=== PATIENT | male | born 1960 | race Caucasian/White ===

== ENCOUNTER 2017-10-19 14:37 | Inpatient (IN) | payer OTHER ==
[2017-10-19 16:49] VITALS: BMI 27.4
--- NOTE | 2017-10-19 20:14 | HP ---
CIWA Score - CIWA Score Nausea/Vomitin-Mild Nausea/No Vomiting Muscle Tremors: 2 Anxiety: 4-Mod. Anxious/Guarded Agitation: 1-Slight > Activity Paroxysmal Sweats: 3 Orientation: 0-Oriented Tacttile Disturbances: 3-Moderate Itch/Numb/Burn Auditory Disturbances: 2-Mild Harshness/Frighten Visual Disturbances: 3-Moderate Sensitivity Headache: 2-Mild CIWA-Ar Total Score: 21 Admission ROS S - HPI Chief Complaint: withdrawal symptoms Allergies/Adverse Reactions: Allergies Allergy/AdvReac Type Severity Reaction Status Date / Time No Known Allergies Allergy Verified 10/19/17 18:36 History of Present Illness: 57 yo male with hx of IV heroin, nicotine, and alcohol dependence is here for detox. Reports smoking since age 18 yo and currently smokes 11 cigarettes per day. Patient currently attends [facility] treatment and recovery Tel: , currently on Methadone 110 mg, last medicated 10/19/17. Past medical history of GERD, depression, anxiety, bipolar and schizophrenia, Hep C and anemia. Reports history of suicide attempt in 2006 by hanging. Currently denies suicidal / homicidal ideation. Reports the longest period of sobriety 2 years. Last detox in [facility] in [place], in 2011. Exam Limitations: No Limitations - Ebola screening Have you traveled outside of the country in the last 21 days: No Have you had contact with anyone from an Ebola affected area: No Have you been sick,other than usual withdrawal symptoms: No Do you have a fever: No - Review of Systems Constitutional: Chills, Loss of Appetite, Changes in sleep EENT: reports: Blurred Vision (uses reading glasses), Nose Congestion, Dental Problems, Other (b/t ears feel clogged) Respiratory: reports: SOB with Exertion (when using steps or after ambulating 1/ 2 blocks) Cardiac: reports: Lightheadedness, Syncope (last time one month from drinking alcohol) GI: reports: Nausea, Indigestion : reports: Burning, Urgency Musculoskeletal: reports: Joint Pain (knees and elbows) Integumentary: reports: No Symptoms Reported Neuro: reports: Headache, Numbness (b/t lower extremities), Tingling, Dizziness Endocrine: reports: Increased Thirst Hematology: reports: Anemia Psychiatric: reports: Orientated x3, Anxious, other Other Systems: Reviewed and Negative Patient History - Patient Medical History Hx Anemia: Yes Hx Asthma: Yes (currenty not taking any medicaitons ) Hx Chronic Obstructive Pulmonary Disease (COPD): No Hx Cancer: No Hx Cardiac Disorders: No Hx Congestive Heart Failure: No Hx Hypertension: No Hx Hypercholesterolemia: No Hx Pacemaker: No HX Cerebrovascular Accident: No Hx Seizures: No Hx Dementia: No Hx Diabetes: No Hx Gastrointestinal Disorders: No Hx Liver Disease: Yes (Hep C ) Hx Genitourinary Disorders: No Hx Sexually Transmitted Disorders: No Hx Renal Disease (ESRD): No Hx Thyroid Disease: No Hx Human Immunodeficiency Virus (HIV): No (last tested 1 year ago ) Hx Hepatitis C: Yes Hx Depression: Yes Hx Suicide Attempt: Yes (2006) Hx Bipolar Disorder: Yes Hx Schizophrenia: Yes - Patient Surgical History Past Surgical History: No Hx Neurologic Surgery: No Hx Cataract Extraction: No Hx Cardiac Surgery: No Hx Lung Surgery: No Hx Breast Surgery: No Hx Breast Biopsy: No Hx Abdominal Surgery: Yes (splenectomy ) Hx Appendectomy: No Hx Cholecystectomy: No Hx Genitourinary Surgery: No Hx Section: No Hx Orthopedic Surgery: No Anesthesia Reaction: No - PPD History Previous Implant?: Yes Documented Results: Positive w/o proof PPD to be Administered?: No - Reproductive History Patient is a Female of Child Bearing Age (11 -55 yrs old): No - Smoking Cessation Smoking history: Current every day smoker Have you smoked in the past 12 months: Yes Aproximately how many cigarettes per day: 11 Hx Chewing Tobacco Use: No Initiated information on smoking cessation: Yes 'Breaking Loose' booklet given: 10/19/17 - Substance & Tx. History Hx Alcohol Use: Yes Hx Substance Use: Yes Substance Use Type: Alcohol Hx Substance Use Treatment: Yes (2011) - Substances Abused Alcohol Route: Oral Frequency: Daily Amount used: beer- 1 six pack (24oz) Age of first use: 17 Date of Last Use: 10/19/17 Family Disease History - Family Disease History Family Disease History: Diabetes: Mother (alive, HTN), Heart Disease: Father ( dec, MA and Asthma ), Mother, Other: Father, Mother Admission Physical Exam BHS - Vital Signs Vital Signs: Vital Signs - 24 hr 10/19/17 16:48 Temperature 97.8 F Pulse Rate 64 Respiratory 18 Rate Blood Pressure 145/83 - Physical General Appearance: Yes: Disheveled, Alcohol on Breath, Sweating, Anxious, Other (malodorous) HEENTM: Yes: EOMI, Hearing grossly Normal, Normal ENT Inspection, Normocephalic , Normal Voice, FELICIANO, Pharynx Normal, Tm's normal, Other (poor dentation, dry mucous membranes) Respiratory: Yes: Chest Non-Tender, Lungs Clear, Normal Breath Sounds, No Respiratory Distress, No Accessory Muscle Use Neck: Yes: No masses,lesions,Nodules, Trachea in good position Breast: Yes: Breast Exam Deferred Cardiology: Yes: Regular Rhythm, Regular Rate, S1, S2 Abdominal: Yes: Normal Bowel Sounds, Non Tender, Soft, Protuberent, Other ( umbilical hernia) Genitourinary: Yes: Within Normal Limits Back: Yes: Within Normal Limits, Normal Inspection Musculoskeletal: Yes: full range of Motion, Gait Steady, Pelvis Stable Extremities: Yes: Normal Capillary Refill, Normal Inspection, Normal Range of Motion, Non-Tender Neurological: Yes: cover marker II-XII NML intact, Fully Oriented, Alert, Motor Strength 5/5, Depressed Affect Integumentary: Yes: Normal Color, Dry, Warm Lymphatic: Yes: Within Normal Limits - Diagnostic (1) Alcohol dependence with withdrawal Current Visit: Yes Status: Acute Qualifiers: Complication of substance-induced condition: uncomplicated Qualified Code(s ): F10.230 - Alcohol dependence with withdrawal, uncomplicated (2) Methadone maintenance therapy patient Current Visit: Yes Status: Chronic (3) GERD (gastroesophageal reflux disease) Current Visit: Yes Status: Chronic (4) Umbilical hernia Current Visit: No Status: Chronic (5) Allergic rhinitis Current Visit: Yes Status: Acute (6) Nicotine dependence Current Visit: Yes Status: Chronic (7) Hepatitis-C Current Visit: Yes Status: Chronic (8) Asthma Current Visit: Yes Status: Chronic Qualifiers: Asthma severity: mild (9) History of psychiatric disorder Current Visit: Yes Status: Chronic (10) Difficulty sleeping Current Visit: Yes Status: Acute Cleared for Admission S - Detox or Rehab [facility] Level of Care: Medically Managed Detox Regimen/Protocol: Librium [facility] Breath Alcohol Content Breath Alcohol Content: 0.040 Urine Drug Screen - Results Drug Screen Negative: No Urine Drug Screen Results: MTD-Methadone, TCA-Tricyclic Antidepress
[2017-10-19] MEDS ORDERED: chlordiazePOXIDE HCL 25 MG CAPSULE PO ONE (20:38)
[2017-10-19] MEDS ORDERED: MENTHOL/PHENOL 1 EACH UD MM PRN (20:38)
[2017-10-19] MEDS ORDERED: LOPERAMIDE HCL 2 MG CAPSULE PO PRN (20:38)
[2017-10-19] MEDS ORDERED: NICOTINE POLACRILEX 2 MG GUM BC PRN (20:38)
[2017-10-19] MEDS ORDERED: IBUPROFEN 400 MG TABLET (FP) PO PRN (20:38)
[2017-10-19] MEDS ORDERED: MAGNESIUM HYDROX 2400MG/30ML ORAL SUSPENSION 30 ML CUP PO PRN (20:38)
[2017-10-19] MEDS ORDERED: MAGNESIUM CITRATE 300 ML BOTTLE PO PRN (20:38)
[2017-10-19] MEDS ORDERED: guaiFENesin/D-METHORPHAN HB 10 ML UNIT-DOSE CUPS PO PRN (20:38)
[2017-10-19] MEDS ORDERED: chlordiazePOXIDE HCL 25 MG CAPSULE PO PRN (20:38)
[2017-10-19] MEDS ORDERED: diphenhydrAMINE HCL 25 MG CAPSULE (FP) PO PRN ×2 (20:40→20:48)
[2017-10-19] MEDS: PANTOPRAZOLE 20 MG TABLET (FP) PO SCH (21:26)
[2017-10-19] MEDS: THIAMINE HCL 100 MG TABLET (FP) PO SCH (22:27)
[2017-10-19] MEDS: chlordiazePOXIDE HCL 25 MG CAPSULE PO SCH (22:28)
[2017-10-19] MEDS: MAG HYDROX/AL HYDROX/SIMETH 30 ML UNIT-DOSE CUP PO PRN (22:42)
[2017-10-20] MEDS: P-EPHED 60MG/TRIPROLIDI 2.5MG TABLET PO PRN ×2 (05:45→17:18)
[2017-10-20] MEDS: chlordiazePOXIDE HCL 25 MG CAPSULE PO SCH ×4 (05:45→22:21)
[2017-10-20] MEDS: MAG HYDROX/AL HYDROX/SIMETH 30 ML UNIT-DOSE CUP PO PRN ×2 (05:45→17:18)
[2017-10-20] MEDS ORDERED: METHADONE HCL 10 MG TABLET PO ONE (08:48)
[2017-10-20] MEDS ORDERED: METHADONE 80 MG, METHADONE 30 MG PO ONE (09:15)
[2017-10-20] MEDS ORDERED: METHADONE HCL 10 MG TABLET ONE (09:24)
[2017-10-20] MEDS ORDERED: METHADONE HCL 40 MG DISPERSABLE TABLET ONE (09:25)
[2017-10-20] MEDS: PRENATAL VITAMINS W/ FOLIC ACID TABLET (FP) PO SCH (09:30)
[2017-10-20] MEDS: PANTOPRAZOLE 20 MG TABLET (FP) PO SCH (09:30)
--- NOTE | 2017-10-20 09:43 | CONSULT ---
[facility] Psychiatric Consult - Data Date of interview: 10/20/17 Admission source: [facility] Identifying data: Pt. is a 57 year old single male, father of one, unemployed and homeless. This is patient's first admission to [facility]. Pt. admitted to for alcohol dependence. Substance Abuse History: Following information confirmed with Mr. Holder: Smoking Cessation. Smoking history: Current every day smoker. Have you smoked in the past 12 months: Yes. Aproximately how many cigarettes per day: 11. Hx Chewing Tobacco Use: No. Initiated information on smoking cessation: Yes. ' Breaking Loose' booklet given: 10/19/17. - Substance & Tx. History. Hx Alcohol Use: Yes. Hx Substance Use: Yes. Substance Use Type: Alcohol. Hx Substance Use Treatment: Yes (2011). - Substances Abused. Alcohol. Route: Oral. Frequency: Daily. Amount used: beer- 1 six pack (24oz). Age of first use: 17. Date of Last Use: 10/19/17 Medical History: Anemia, Asthma, Hep C Psychiatric History: Pt. reports one psychiatric hospitalization in 2006 at [facility] [place] for suicide attempt via hanging self. Pt. reports taking psychiatric medications during different periods of incarceration ranging from [id number]. Pt. reports living in a homeless nursing home facility called "[facility]" and a psychiatrist visits the nursing home and see's him there. Pt. is unable to recall the medication he is taking, and also reports medication nonadherence. Pt. is a poor historian (unable to recall h/o psychiatric medications and dosages). Pt. reports a diagnosis of depresssion and anxiety. Pt. denies suicidal and homicidal ideation. Physical/Sexual Abuse/Trauma History: Denies. Mental Status Exam - Mental Status Exam Alert and Oriented to: Time, Place, Person Cognitive Function: Good Patient Appearance: Unkempt Mood: Withdrawn, Euthymic Affect: Mood Congruent Patient Behavior: Guarded, Cooperative Speech Pattern: Delayed Voice Loudness: Moderately Soft/Quiet Thought Process: Goal Oriented Thought Disorder: Not Present Hallucinations: Denies Suicidal Ideation: Denies Homicidal Ideation: Denies Insight/Judgement: Poor Sleep: Poorly Appetite: Fair Muscle strength/Tone: Normal Gait/Station: Other (Did not observe patient gait.) Psychiatric Findings - Problem List ([place] 1, 2,3) (1) Alcohol dependence with withdrawal Current Visit: Yes Status: Acute Qualifiers: Complication of substance-induced condition: uncomplicated Qualified Code(s ): F10.230 - Alcohol dependence with withdrawal, uncomplicated (2) Methadone maintenance therapy patient Current Visit: Yes Status: Chronic (3) Nicotine dependence Current Visit: Yes Status: Acute Qualifiers: Nicotine product type: cigarettes Substance use status: in withdrawal Qualified Code(s): F17.213 - Nicotine dependence, cigarettes, with withdrawal (4) Substance induced mood disorder Current Visit: No Status: Suspected - Initial Treatment Plan Initial Treatment Plan: Psychoeducation provided. Detoxification provided. Observation.
[2017-10-20] MEDS: NICOTINE 14 MG/24 HOURS TOPICAL PATCH TD SCH (10:20)
[2017-10-20 10:21] LABS: HEMATOCRIT 43.1 % (35.4-49); MCH 33.5 pg (25.7-33.7); MCHC 32.5 g/dl (32.0-35.9); MEAN CELL VOLUME 103.1 fl (80-96); MEAN PLT VOLUME 10.5 fl (7.5-11.1); PLATELET COUNT 122 K/MM3 (134-434); RBC 4.18 M/mm3 (4.00-5.60); RDW 13.7 % (11.9-15.9); WHITE BLOOD COUNT 6.1 K/mm3 (4.0-10.0)
[2017-10-20 10:22] LABS: ALBUMIN 3.4 g/dl (3.4-5.0); BLOOD UREA NITROGEN 13 mg/dL (7-18); CHLORIDE 102 mmol/L (98-107); GLUCOSE,RANDOM 113 mg/dL (74-106); POTASSIUM 3.8 mmol/L (3.5-5.1); SODIUM 138 mmol/L (136-145)
[2017-10-20 10:26] LABS: ALK PHOS 198 U/L (45-117); ANION GAP 6 (8-16); CALCIUM 7.9 mg/dL (8.5-10.1); CO2 30 mmol/L (21-32); CREATININE 0.6 mg/dL (0.7-1.3); SGOT/AST 163 U/L (15-37); SGPT/ALT 89 U/L (12-78); TOT PROT 7.7 g/dl (6.4-8.2)
--- NOTE | 2017-10-20 10:44 | PN ---
[facility] CIWA - CIWA Score Nausea/Vomitin-No Nausea/No Vomiting Muscle Tremors: 4-Moderate,w/Arms Extend Anxiety: 4-Mod. Anxious/Guarded Agitation: 4-Moderately Restless Paroxysmal Sweats: 1-Minimal Palms Moist Orientation: 0-Oriented Tacttile Disturbances: 3-Moderate Itch/Numb/Burn Auditory Disturbances: 0-None Visual Disturbances: 0-None Headache: 0-None Present CIWA-Ar Total Score: 16 BHS Progress Note (SOAP) Subjective: ANXIETY,SWEATS,TREMORS,FATIGUE. Objective: 10/20/17 10:42 Vital Signs Temperature 97.2 F L 10/20/17 09:29 Pulse Rate 55 L 10/20/17 09:29 Respiratory Rate 18 10/20/17 09:29 Blood Pressure 141/73 10/20/17 09:29 O2 Sat by Pulse Oximetry (%) Laboratory Last Values WBC 6.1 K/mm3 (4.0-10.0) 10/20/17 07:00 RBC 4.18 M/mm3 (4.00-5.60) 10/20/17 07:00 Hgb 14.0 GM/dL (11.7-16.9) 10/20/17 07:00 Hct 43.1 % (35.4-49) 10/20/17 07:00 MCV 103.1 fl (80-96) H 10/20/17 07:00 MCH 33.5 pg (25.7-33.7) 10/20/17 07:00 MCHC 32.5 g/dl (32.0-35.9) 10/20/17 07:00 RDW 13.7 % (11.9-15.9) 10/20/17 07:00 Plt Count 122 K/MM3 (134-434) L 10/20/17 07:00 MPV 10.5 fl (7.5-11.1) 10/20/17 07:00 Sodium 138 mmol/L (136-145) 10/20/17 07:00 Potassium 3.8 mmol/L (3.5-5.1) 10/20/17 07:00 Chloride 102 mmol/L (98-107) 10/20/17 07:00 Carbon Dioxide 30 mmol/L (21-32) 10/20/17 07:00 Anion Gap 6 (8-16) L 10/20/17 07:00 BUN 13 mg/dL (7-18) 10/20/17 07:00 Creatinine 0.6 mg/dL (0.7-1.3) L 10/20/17 07:00 Creat Clearance w eGFR > 60 (>60) 10/20/17 07:00 Random Glucose 113 mg/dL (74-106) H 10/20/17 07:00 Calcium 7.9 mg/dL (8.5-10.1) L 10/20/17 07:00 Total Bilirubin 1.0 mg/dL (0.2-1.0) 10/20/17 07:00 AST 163 U/L (15-37) H 10/20/17 07:00 ALT 89 U/L (12-78) H 10/20/17 07:00 Alkaline Phosphatase 198 U/L (45-117) H 10/20/17 07:00 Total Protein 7.7 g/dl (6.4-8.2) 10/20/17 07:00 Albumin 3.4 g/dl (3.4-5.0) 10/20/17 07:00 UA SPECIMEN NEEDED Assessment: 10/20/17 10:43 WITHDRAWAL SX Plan: CONTINUE DETOX
--- NOTE | 2017-10-20 11:55 | EKG ---
Test Reason : Blood Pressure : / mmHG Vent. Rate : 063 BPM Atrial Rate : 063 BPM P-R Int : 134 ms QRS Dur : 086 ms QT Int : 460 ms P-R-T Axes : 064 045 061 degrees QTc Int : 470 ms NORMAL SINUS RHYTHM WITH SINUS ARRHYTHMIA NORMAL ECG NO PREVIOUS ECGS AVAILABLE Confirmed by [place] MAS, SEB ([id number]) on 10/20/2017 11:54:51 AM Referred By: Confirmed By:SEB PARIS MD
[2017-10-20] MEDS: THIAMINE HCL 100 MG TABLET (FP) PO SCH (22:21)
[2017-10-21] MEDS: MAG HYDROX/AL HYDROX/SIMETH 30 ML UNIT-DOSE CUP PO PRN (01:27)
[2017-10-21] MEDS: P-EPHED 60MG/TRIPROLIDI 2.5MG TABLET PO PRN ×3 (01:28→23:55)
[2017-10-21] MEDS ORDERED: METHADONE HCL 10 MG TABLET ONE (04:42)
[2017-10-21] MEDS ORDERED: METHADONE HCL 40 MG DISPERSABLE TABLET ONE (04:43)
[2017-10-21] MEDS: chlordiazePOXIDE HCL 25 MG CAPSULE PO SCH ×3 (05:48→17:35)
[2017-10-21] MEDS: METHADONE 80 MG, METHADONE 30 MG PO SCH (05:49)
[2017-10-21] MEDS ORDERED: METHADONE HCL 10 MG TABLET PO SCH (06:00)
[2017-10-21] MEDS: PRENATAL VITAMINS W/ FOLIC ACID TABLET (FP) PO SCH (10:01)
[2017-10-21] MEDS: PANTOPRAZOLE 20 MG TABLET (FP) PO SCH (10:02)
[2017-10-21] MEDS: NICOTINE 14 MG/24 HOURS TOPICAL PATCH TD SCH (10:03)
--- NOTE | 2017-10-21 11:39 | PN ---
[facility] CIWA - CIWA Score Nausea/Vomitin-No Nausea/No Vomiting Muscle Tremors: 4-Moderate,w/Arms Extend Anxiety: 4-Mod. Anxious/Guarded Agitation: 4-Moderately Restless Paroxysmal Sweats: 1-Minimal Palms Moist Orientation: 0-Oriented Tacttile Disturbances: 3-Moderate Itch/Numb/Burn Auditory Disturbances: 0-None Visual Disturbances: 0-None Headache: 0-None Present CIWA-Ar Total Score: 16 BHS Progress Note (SOAP) Subjective: ANXIETY,SWEATS,TREMORS. PT C/O BURNING ON URINATION X 3 WEEKS. INTERMITTENT SLEEP. Objective: 10/21/17 11:36 Laboratory Last Values WBC 6.1 K/mm3 (4.0-10.0) 10/20/17 07:00 RBC 4.18 M/mm3 (4.00-5.60) 10/20/17 07:00 Hgb 14.0 GM/dL (11.7-16.9) 10/20/17 07:00 Hct 43.1 % (35.4-49) 10/20/17 07:00 MCV 103.1 fl (80-96) H 10/20/17 07:00 MCH 33.5 pg (25.7-33.7) 10/20/17 07:00 MCHC 32.5 g/dl (32.0-35.9) 10/20/17 07:00 RDW 13.7 % (11.9-15.9) 10/20/17 07:00 Plt Count 122 K/MM3 (134-434) L 10/20/17 07:00 MPV 10.5 fl (7.5-11.1) 10/20/17 07:00 Sodium 138 mmol/L (136-145) 10/20/17 07:00 Potassium 3.8 mmol/L (3.5-5.1) 10/20/17 07:00 Chloride 102 mmol/L (98-107) 10/20/17 07:00 Carbon Dioxide 30 mmol/L (21-32) 10/20/17 07:00 Anion Gap 6 (8-16) L 10/20/17 07:00 BUN 13 mg/dL (7-18) 10/20/17 07:00 Creatinine 0.6 mg/dL (0.7-1.3) L 10/20/17 07:00 Creat Clearance w eGFR > 60 (>60) 10/20/17 07:00 Random Glucose 113 mg/dL (74-106) H 10/20/17 07:00 Calcium 7.9 mg/dL (8.5-10.1) L 10/20/17 07:00 Total Bilirubin 1.0 mg/dL (0.2-1.0) 10/20/17 07:00 AST 163 U/L (15-37) H 10/20/17 07:00 ALT 89 U/L (12-78) H 10/20/17 07:00 Alkaline Phosphatase 198 U/L (45-117) H 10/20/17 07:00 Total Protein 7.7 g/dl (6.4-8.2) 10/20/17 07:00 Albumin 3.4 g/dl (3.4-5.0) 10/20/17 07:00 RPR Titer Nonreactive (NONREACTIVE) 10/20/17 07:00 Assessment: 10/21/17 11:37 WITHDRAWAL SX Plan: CONTINUE DETOX UA UC BACTRIM DS 1 TAB BID X 10 DAYS
--- NOTE | 2017-10-21 11:48 | PN ---
S Progress Note Note: C/O PAINFUL,BURNING INCOMPLETE AND FREQUENT URINATION X 3 WEEKS. REPORTS DID NOT SEEK MEDICAL ATTENTION. UA SENT OUT BACTRIM DS 1 TAB PO BID STARTED. INCREASE PO FLUIDS DX:UTI
[2017-10-21] MEDS ORDERED: SULFAMETHOXAZOLE/TRIMETHOPRIM 800MG/160MG D.S. TABLET PO ONE (12:00)
[2017-10-21 14:20] LABS: URINE APPEARANCE CLEAR; URINE BILIRUBIN NEGATIVE (NEGATIVE); URINE BLOOD NEGATIVE (NEGATIVE); URINE COLOR YELLOW; URINE GLUCOSE (UA) NEGATIVE (NEGATIVE); URINE KETONE NEGATIVE (NEGATIVE); URINE LEUK ESTERASE NEGATIVE (NEGATIVE); URINE NITRITE NEGATIVE (NEGATIVE); URINE PROTEIN NEGATIVE (NEGATIVE)
[2017-10-21] MEDS: FLUTICASONE PROP 0.05% 16 GM NASAL SPRAY NS PRN (22:10)
[2017-10-21] MEDS: SULFAMETHOXAZOLE/TRIMETHOPRIM 800MG/160MG D.S. TABLET PO SCH (22:12)
[2017-10-21] MEDS: THIAMINE HCL 100 MG TABLET (FP) PO SCH (22:12)
[2017-10-21] MEDS: chlordiazePOXIDE 5 MG CAPSULE PO SCH (22:12)
[2017-10-22] MEDS: chlordiazePOXIDE 5 MG CAPSULE PO SCH ×3 (05:20→17:22)
[2017-10-22] MEDS: METHADONE 80 MG, METHADONE 30 MG PO SCH (05:22)
[2017-10-22] MEDS ORDERED: METHADONE HCL 40 MG DISPERSABLE TABLET ONE (05:22)
[2017-10-22] MEDS ORDERED: METHADONE HCL 10 MG TABLET ONE (05:22)
[2017-10-22] MEDS: SULFAMETHOXAZOLE/TRIMETHOPRIM 800MG/160MG D.S. TABLET PO SCH ×2 (10:28→22:08)
[2017-10-22] MEDS: NICOTINE 14 MG/24 HOURS TOPICAL PATCH TD SCH (10:28)
[2017-10-22] MEDS: PRENATAL VITAMINS W/ FOLIC ACID TABLET (FP) PO SCH (10:28)
[2017-10-22] MEDS: PANTOPRAZOLE 20 MG TABLET (FP) PO SCH (10:28)
[2017-10-22] MEDS: FLUTICASONE PROP 0.05% 16 GM NASAL SPRAY NS PRN ×2 (10:30→23:47)
--- NOTE | 2017-10-22 15:21 | PN ---
BHS Progress Note (SOAP) Subjective: Interrupted sleep, Anxious, Constipation. Objective: PT. A & O X 3, OBSERVED AMBULATING ON UNIT. NO ACUTE DISTRESS. 10/22/17 15:19 Vital Signs Temperature 97.6 F 10/22/17 14:12 Pulse Rate 68 10/22/17 14:12 Respiratory Rate 18 10/22/17 14:12 Blood Pressure 123/73 10/22/17 14:12 O2 Sat by Pulse Oximetry (%) Laboratory Tests 10/20/17 10/20/17 10/20/17 07:00 07:00 07:00 WBC 6.1 RBC 4.18 Hgb 14.0 Hct 43.1 MCV 103.1 H MCH 33.5 MCHC 32.5 RDW 13.7 Plt Count 122 L MPV 10.5 Sodium 138 Potassium 3.8 Chloride 102 Carbon Dioxide 30 Anion Gap 6 L BUN 13 Creatinine 0.6 L Creat Clearance w eGFR > 60 Random Glucose 113 H Calcium 7.9 L Total Bilirubin 1.0 AST 163 H ALT 89 H Alkaline Phosphatase 198 H Total Protein 7.7 Albumin 3.4 Urine Color Urine Appearance Urine pH Ur Specific [place] Urine Protein Urine Glucose (UA) Urine Ketones Urine Blood Urine Nitrite Urine Bilirubin Urine Urobilinogen Ur Leukocyte Esterase RPR Titer Nonreactive 10/21/17 09:20 WBC RBC Hgb Hct MCV MCH MCHC RDW Plt Count MPV Sodium Potassium Chloride Carbon Dioxide Anion Gap BUN Creatinine Creat Clearance w eGFR Random Glucose Calcium Total Bilirubin AST ALT Alkaline Phosphatase Total Protein Albumin Urine Color Yellow Urine Appearance Clear Urine pH 7.0 Ur Specific [place] 1.016 Urine Protein Negative Urine Glucose (UA) Negative Urine Ketones Negative Urine Blood Negative Urine Nitrite Negative Urine Bilirubin Negative Urine Urobilinogen 2.0 Ur Leukocyte Esterase Negative RPR Titer LABS NOTED. Assessment: 10/22/17 15:20 WITHDRAWAL SYMPTOMS. Plan: CONTINUE DETOX.
[2017-10-22] MEDS: THIAMINE HCL 100 MG TABLET (FP) PO SCH (22:08)
[2017-10-22] MEDS: chlordiazePOXIDE HCL 10 MG CAPSULE PO SCH (22:08)
[2017-10-22] MEDS: MAG HYDROX/AL HYDROX/SIMETH 30 ML UNIT-DOSE CUP PO PRN (22:09)
[2017-10-23] MEDS ORDERED: METHADONE HCL 10 MG TABLET ONE (04:28)
[2017-10-23] MEDS ORDERED: METHADONE HCL 40 MG DISPERSABLE TABLET ONE (04:29)
[2017-10-23] MEDS: chlordiazePOXIDE HCL 10 MG CAPSULE PO SCH (05:47)
[2017-10-23] MEDS: METHADONE 80 MG, METHADONE 30 MG PO SCH (05:47)
[2017-10-23] MEDS: FLUTICASONE PROP 0.05% 16 GM NASAL SPRAY NS PRN (05:51)
[2017-10-23 06:11] VITALS: BP 132/76; PULSE 71; TEMP 98.6
--- NOTE | 2017-10-23 09:08 | DS ---
[facility] Detox Discharge Summary Admission Date: 10/19/17 Discharge Date: 10/23/17 - History Present History: Alcohol Dependence, MMTP Additional Comments: follow up with after [facility] program as arrangement and clinic Pertinent Past History: hepatitis c gerd - Physical Exam Results Vital Signs: Vital Signs Temperature 98.6 F 10/23/17 06:11 Pulse Rate 71 10/23/17 06:11 Respiratory Rate 18 10/23/17 06:11 Blood Pressure 132/76 10/23/17 06:11 O2 Sat by Pulse Oximetry (%) Pertinent Admission Physical Exam Findings: withdrawal signs and symptom - Treatment Hospital Course: Detox Protocol Followed, Detoxed Safely, Responded well, Discharged Condition Good Patient has Accepted a Rehab Referral to: declined - Medication Discharge Medications: Ambulatory Orders Sulfamethoxazole/Trimethoprim [Bactrim Ds -] 1 tab PO BID 8 Days #16 tablet - Diagnosis (1) Alcohol dependence with withdrawal Current Visit: Yes Status: Acute Qualifiers: Complication of substance-induced condition: uncomplicated Qualified Code(s ): F10.230 - Alcohol dependence with withdrawal, uncomplicated (2) Nicotine dependence Current Visit: Yes Status: Acute Qualifiers: Nicotine product type: cigarettes Substance use status: in withdrawal Qualified Code(s): F17.213 - Nicotine dependence, cigarettes, with withdrawal (3) Allergic rhinitis Current Visit: Yes Status: Chronic Qualifiers: Allergic rhinitis trigger: unspecified Allergic rhinitis seasonality: unspecified seasonality Qualified Code(s): J30.9 - Allergic rhinitis, unspecified (4) Asthma Current Visit: Yes Status: Chronic Qualifiers: Asthma severity: mild Asthma persistence: intermittent Asthma complication type: uncomplicated Qualified Code(s): J45.20 - Mild intermittent asthma, uncomplicated (5) GERD (gastroesophageal reflux disease) Current Visit: Yes Status: Chronic Qualifiers: Esophagitis presence: without esophagitis Qualified Code(s): K21.9 - Gastro -esophageal reflux disease without esophagitis (6) Hepatitis-C Current Visit: Yes Status: Chronic Qualifiers: Viral hepatitis chronicity: chronic Hepatic coma status: without hepatic coma Qualified Code(s): B18.2 - Chronic viral hepatitis C (7) Methadone maintenance therapy patient Current Visit: Yes Status: Chronic (8) Bronchitis Current Visit: Yes Status: Acute - AMA Did Patient Leave Against Medical Advice: No
== END 2017-10-23 09:20 | disposition home or self-care (01) | DRG 773 ==
LOC: YASAS 14:37 → Y3N 17:43
PROVIDERS: ADMIT Internal Medicine; ATTEND Internal Medicine
PROC: HZ2ZZZZ Detoxification Services for Substance Abuse Treatment (ICD-10-PCS; principal; 2017-10-19)
DX: F10.230 Alcohol dependence with withdrawal, uncomplicated (principal); F11.20 Opioid dependence, uncomplicated; F17.213 Nicotine dependence, cigarettes, with withdrawal; F19.24 Other psychoactive substance dependence with psychoactive substance-induced mood disorder; D64.9 Anemia, unspecified; J20.9 Acute bronchitis, unspecified; J45.20 Mild intermittent asthma, uncomplicated; K21.9 Gastro-esophageal reflux disease without esophagitis; J30.9 Allergic rhinitis, unspecified; B18.2 Chronic viral hepatitis C; K42.9 Umbilical hernia without obstruction or gangrene; R30.0 Dysuria; Z87.440 Personal history of urinary (tract) infections; Z91.5 Personal history of self-harm
CPT/HCPCS: 36415; 71046-TC-FY; 80053; 81003; 85027; 86593; 93005; 93010

== ENCOUNTER 2017-12-07 12:31 | Inpatient (IN) | payer OTHER ==
[2017-12-07 13:52] VITALS: BMI 28.3
--- NOTE | 2017-12-07 16:41 | HP ---
CIWA Score - CIWA Score Nausea/Vomitin-Mild Nausea/No Vomiting Muscle Tremors: 3 Anxiety: 1-Mildly Anxious Agitation: 0-Normal Activity Paroxysmal Sweats: 2 Orientation: 0-Oriented Tacttile Disturbances: 2-Mild Itch/Numbness/Burn Auditory Disturbances: 1-Very Mild Visual Disturbances: 2-Mild Sensitivity Headache: 1-Very Mild CIWA-Ar Total Score: 13 Admission ROS BHS - HPI Chief Complaint: WITHDRAWAL SYMPTOMS Allergies/Adverse Reactions: Allergies Allergy/AdvReac Type Severity Reaction Status Date / Time No Known Allergies Allergy Verified 12/07/17 15:27 History of Present Illness: 57 Y.O. MAN WITH A HISTORY OF ALCOHOL DEPENDENCE IS HERE SEEKING DETOX. HE COMPLETED DETOX LESS THAN 1 MONTH AGO. LONGEST PERIOD SOBER HAS BEEN 2 YEARS. HE IS ENROLLED IN [employer]S MMPT AND REPORTS LDM ON 12/07/2017 AT 110MG. Exam Limitations: Intoxication - Ebola screening Have you traveled outside of the country in the last 21 days: No Have you had contact with anyone from an Ebola affected area: No Have you been sick,other than usual withdrawal symptoms: No - Review of Systems Constitutional: Chills, Night Sweats EENT: reports: Double Vision, Tearing, Nose Congestion Respiratory: reports: Cough, Wheezing Cardiac: reports: Lightheadedness, Palpitations GI: reports: Constipated : reports: No Symptoms Reported Musculoskeletal: reports: No Symptoms Reported Integumentary: reports: No Symptoms Reported Neuro: reports: Headache, Numbness, Tingling Endocrine: reports: No Symptoms Reported Hematology: reports: No Symptoms Reported Psychiatric: reports: Depressed, other (INSOMNIA) Other Systems: Reviewed and Negative Patient History - Patient Medical History Hx Anemia: No Hx Asthma: No Hx Chronic Obstructive Pulmonary Disease (COPD): No Hx Cancer: No Hx Cardiac Disorders: No Hx Congestive Heart Failure: No Hx Hypertension: No Hx Hypercholesterolemia: No Hx Pacemaker: No HX Cerebrovascular Accident: No Hx Seizures: No Hx Dementia: No Hx Diabetes: No Hx Gastrointestinal Disorders: Yes (acid reflux) Hx Liver Disease: Yes (Hep C ) Hx Genitourinary Disorders: No Hx Sexually Transmitted Disorders: No Hx Renal Disease (ESRD): No Hx Thyroid Disease: No Hx Human Immunodeficiency Virus (HIV): No (last tested 1 year ago ) Hx Hepatitis C: Yes Hx Depression: Yes Hx Suicide Attempt: No Hx Bipolar Disorder: Yes Hx Schizophrenia: No - Patient Surgical History Past Surgical History: No Hx Neurologic Surgery: No Hx Cataract Extraction: No Hx Cardiac Surgery: No Hx Lung Surgery: No Hx Breast Surgery: No Hx Breast Biopsy: No Hx Abdominal Surgery: Yes (splenectomy in 2002 (trauma)) Hx Appendectomy: No Hx Cholecystectomy: No Hx Genitourinary Surgery: No Hx Section: No Hx Orthopedic Surgery: No Anesthesia Reaction: No - PPD History Previous Implant?: Yes Documented Results: Positive w/o proof Results: cxr neg 10/20/17 - Reproductive History Patient is a Female of Child Bearing Age (11 -55 yrs old): No - Smoking Cessation Smoking history: Current every day smoker Have you smoked in the past 12 months: Yes Aproximately how many cigarettes per day: 10 Hx Chewing Tobacco Use: No Initiated information on smoking cessation: Yes 'Breaking Loose' booklet given: 12/07/17 - Substance & Tx. History Hx Alcohol Use: Yes Hx Substance Use: Yes Substance Use Type: Alcohol Hx Substance Use Treatment: Yes (DETOX: 11/2017; GOES TO [facility] FOR OPIOID DEPENDENCE) - Substances Abused Alcohol-beer Route: Oral Frequency: Daily Amount used: 1-6 pk. (24 oz.) Age of first use: 17 Date of Last Use: 12/07/17 Family Disease History - Family Disease History Family Disease History: Diabetes: Mother (alive, HTN), Heart Disease: Father ( dec, MA and Asthma ), Mother, Other: Father, Mother Admission Physical Exam BHS - Vital Signs Vital Signs: Vital Signs - 24 hr 12/07/17 13:51 Temperature 97.5 F L Pulse Rate 58 L Respiratory 18 Rate Blood Pressure 124/65 - Physical General Appearance: Yes: Disheveled, Sweating, Anxious HEENTM: Yes: Hearing grossly Normal, Normocephalic, Normal Voice Respiratory: Yes: Chest Non-Tender, Lungs Clear, Normal Breath Sounds, No Respiratory Distress, No Accessory Muscle Use Neck: Yes: No masses,lesions,Nodules, Trachea in good position Breast: Yes: Breast Exam Deferred Cardiology: Yes: Regular Rhythm, Bradycardia Abdominal: Yes: Normal Bowel Sounds, Non Tender, Flat, Soft Genitourinary: Yes: Other (NO COMPLAINTS REPORTED) Back: Yes: Normal Inspection Musculoskeletal: Yes: full range of Motion, Gait Steady, Pelvis Stable Extremities: Yes: Normal Capillary Refill, Normal Inspection, Normal Range of Motion, Non-Tender Neurological: Yes: Alert, Normal Mood/Affect, Normal Response Integumentary: Yes: Normal Color, Dry, Warm Lymphatic: Yes: Within Normal Limits - Diagnostic (1) Alcohol dependence with uncomplicated withdrawal Current Visit: Yes Status: Chronic (2) GERD (gastroesophageal reflux disease) Current Visit: Yes Status: Chronic Qualifiers: Esophagitis presence: without esophagitis Qualified Code(s): K21.9 - Gastro -esophageal reflux disease without esophagitis (3) Methadone maintenance therapy patient Current Visit: Yes Status: Chronic (4) Nicotine dependence Current Visit: Yes Status: Chronic Qualifiers: Nicotine product type: cigarettes Substance use status: in withdrawal Qualified Code(s): F17.213 - Nicotine dependence, cigarettes, with withdrawal (5) Hepatitis-C Current Visit: Yes Status: Chronic Qualifiers: Viral hepatitis chronicity: chronic Hepatic coma status: without hepatic coma Qualified Code(s): B18.2 - Chronic viral hepatitis C Cleared for Admission [facility] - Detox or Rehab [facility] Level of Care: Medically Managed Detox Regimen/Protocol: Librium [facility] Breath Alcohol Content Breath Alcohol Content: 0.125 Urine Drug Screen - Results Drug Screen Negative: No Urine Drug Screen Results: BZO-Benzodiazepines, MTD-Methadone
[2017-12-07] MEDS ORDERED: hydrOXYzine PAMOATE 50 MG CAPSULE (FP) PO PRN (17:05)
[2017-12-07] MEDS ORDERED: chlordiazePOXIDE HCL 25 MG CAPSULE PO ONE (17:05)
[2017-12-07] MEDS ORDERED: chlordiazePOXIDE HCL 25 MG CAPSULE PO PRN (17:05)
[2017-12-07] MEDS ORDERED: ACETAMINOPHEN 325 MG TABLET (FP) PO PRN (17:05)
[2017-12-07] MEDS ORDERED: MAGNESIUM CITRATE 300 ML BOTTLE PO PRN (17:05)
[2017-12-07] MEDS ORDERED: MENTHOL/PHENOL 1 EACH UD MM PRN (17:05)
[2017-12-07] MEDS ORDERED: IBUPROFEN 400 MG TABLET (FP) PO PRN (17:05)
[2017-12-07] MEDS ORDERED: LOPERAMIDE HCL 2 MG CAPSULE PO PRN (17:05)
[2017-12-07] MEDS ORDERED: MAG HYDROX/AL HYDROX/SIMETH 30 ML UNIT-DOSE CUP PO PRN (17:05)
[2017-12-07] MEDS ORDERED: guaiFENesin/D-METHORPHAN HB 10 ML UNIT-DOSE CUPS PO PRN (17:05)
[2017-12-07] MEDS: P-EPHED 60MG/TRIPROLIDI 2.5MG TABLET PO PRN (20:51)
[2017-12-07] MEDS ORDERED: MELATONIN 5 MG TABLETS PO PRN (22:00)
[2017-12-07] MEDS: THIAMINE HCL 100 MG TABLET (FP) PO SCH (22:40)
[2017-12-07] MEDS: RANITIDINE HCL 150 MG TABLET (FP) PO SCH (22:40)
[2017-12-07] MEDS: chlordiazePOXIDE HCL 25 MG CAPSULE PO SCH (22:40)
[2017-12-07 22:52] LABS: URINE APPEARANCE CLEAR; URINE BILIRUBIN NEGATIVE (<2.0 mg/dL); URINE BLOOD NEGATIVE (NEGATIVE); URINE COLOR STRAW; URINE GLUCOSE (UA) NEGATIVE (NEGATIVE); URINE KETONE NEGATIVE (NEGATIVE); URINE LEUK ESTERASE NEGATIVE (NEGATIVE); URINE NITRITE NEGATIVE (NEGATIVE); URINE PROTEIN NEGATIVE (NEGATIVE); URINE UROBILINOGEN NEGATIVE mg/dL (0.2-1.0)
[2017-12-08] MEDS: chlordiazePOXIDE HCL 25 MG CAPSULE PO SCH ×4 (05:35→22:26)
--- NOTE | 2017-12-08 07:37 | CONSULT ---
[facility] Psychiatric Consult - Data Date of interview: 12/08/17 Admission source: [facility] Identifying data: This is 57 years old male, single father of one, living alone , unemployd on PA, on [facility], with no psychiatric hospitalization history, is here for deto due to Alcohol, Nicotine, intoxication. Substance Abuse History: Urine Drug Screen Results: BZO-Benzodiazepines, MTD- Methadone. Smoking history: Current every day smoker. Have you smoked in the past 12 months: Yes. Aproximately how many cigarettes per day: 10. Hx Chewing Tobacco Use: No. Initiated information on smoking cessation: Yes. 'Breaking Loose' booklet given: 12/07/17. - Substance & Tx. History. Hx Alcohol Use: Yes. Hx Substance Use: Yes. Substance Use Type: Alcohol. Hx Substance Use Treatment: Yes (DETOX: 11/2017; GOES TO [facility] FOR OPIOID DEPENDENCE). - Substances Abused. Alcohol-beer. Route: Oral. Frequency: Daily. Amount used: 1-6 pk. (24 oz.). Age of first use: 17. Date of Last Use: 12/07/17 Medical History: HepC+, GERD, [facility] 110mg per day, Asthma, Weight loss history Psychiatric History: Patient denies past psychiatric history Physical/Sexual Abuse/Trauma History: Denies Additional Comment: Urine Drug Screen Results: BZO-Benzodiazepines, MTD- Methadone. Observation. Detox Unit Care Protocol Mental Status Exam - Mental Status Exam Alert and Oriented to: Person Cognitive Function: Fair Patient Appearance: Unkempt Mood: Anxious Affect: Mood Congruent Patient Behavior: Cooperative Speech Pattern: Appropriate Voice Loudness: Normal Thought Process: Circumstantial Thought Disorder: Being Controlled Hallucinations: Denies Suicidal Ideation: Denies Homicidal Ideation: Denies Insight/Judgement: Fair Sleep: Difficulty falling asleep Appetite: Weight loss Muscle strength/Tone: Mild Hypotonicity Gait/Station: Shuffling Additional Comments: Observation. Detox Unit Care Protocol Psychiatric Findings - Problem List ([place] 1, 2,3) (1) Alcohol induced insomnia Current Visit: Yes Status: Acute (2) Drug-induced mood disorder Current Visit: Yes Status: Suspected (3) Alcohol dependence with uncomplicated withdrawal Current Visit: Yes Status: Chronic (4) Methadone maintenance therapy patient Current Visit: Yes Status: Chronic (5) Nicotine dependence Current Visit: Yes Status: Chronic Qualifiers: Nicotine product type: cigarettes Substance use status: in withdrawal Qualified Code(s): F17.213 - Nicotine dependence, cigarettes, with withdrawal - Initial Treatment Plan Initial Treatment Plan: Observation. Detox Unit Care Protocol. Seroquel 100mg po qhs
--- NOTE | 2017-12-08 08:24 | PN ---
S CIWA - CIWA Score Nausea/Vomitin Muscle Tremors: 3 Anxiety: 3 Agitation: 3 Paroxysmal Sweats: 3 Orientation: 0-Oriented Tacttile Disturbances: 0-None Auditory Disturbances: 0-None Visual Disturbances: 0-None Headache: 0-None Present CIWA-Ar Total Score: 15 BHS Progress Note (SOAP) Subjective: nausea, sweats, [id number] sleep,anxiety, methadone dose verifired by nurse 110mg daily, [place] [facility] 12/07/2017 Objective: 12/08/17 08:23 Vital Signs - 24 hr 12/07/17 12/07/17 12/07/17 13:51 18:09 20:30 Temperature 97.5 F L 98.2 F Pulse Rate 58 L 70 65 Respiratory 18 18 18 Rate Blood Pressure 124/65 138/84 12/07/17 12/07/17 12/07/17 22:30 23:00 23:03 Temperature 98.4 F Pulse Rate 67 66 65 Respiratory 18 18 18 Rate Blood Pressure 139/78 12/07/17 12/08/17 12/08/17 23:30 00:00 01:00 Temperature Pulse Rate 67 64 60 Respiratory 18 18 18 Rate Blood Pressure 12/08/17 12/08/17 12/08/17 01:30 02:00 02:30 Temperature Pulse Rate 61 63 58 L Respiratory 18 18 18 Rate Blood Pressure 12/08/17 12/08/17 12/08/17 03:30 04:00 04:30 Temperature Pulse Rate 55 L 57 L 55 L Respiratory 18 18 18 Rate Blood Pressure 12/08/17 12/08/17 12/08/17 05:00 05:30 06:00 Temperature Pulse Rate 56 L 54 L 50 L Respiratory 18 18 18 Rate Blood Pressure 12/08/17 12/08/17 12/08/17 06:21 06:30 07:00 Temperature 97.9 F Pulse Rate 50 L 52 L 51 L Respiratory 18 18 18 Rate Blood Pressure 185/92 12/08/17 12/08/17 12/08/17 07:30 08:00 08:01 Temperature Pulse Rate 48 L 48 L 48 L Respiratory 18 18 Rate Blood Pressure 188/98 hypertension, bradycardia Assessment: 12/08/17 08:23 withdrawal sx, cont detox, fludis, encourage ambualtion, methadone dose ordered , control bp.
[2017-12-08] MEDS ORDERED: METHADONE HCL 10 MG TABLET PO SCH (08:30)
[2017-12-08] MEDS ORDERED: METHADONE HCL 40 MG DISPERSABLE TABLET ONE (09:52)
[2017-12-08] MEDS ORDERED: METHADONE HCL 10 MG TABLET ONE (09:53)
[2017-12-08] MEDS: METHADONE 80 MG, METHADONE 30 MG PO SCH (09:54)
[2017-12-08] MEDS: PRENATAL VITAMINS W/ FOLIC ACID TABLET (FP) PO SCH (09:56)
[2017-12-08] MEDS: RANITIDINE HCL 150 MG TABLET (FP) PO SCH ×2 (09:56→22:26)
[2017-12-08 10:32] LABS: HEMATOCRIT 42.1 % (35.4-49); HEMOGLOBIN 14.3 GM/dL (11.7-16.9); MCH 34.5 pg (25.7-33.7); MCHC 33.9 g/dl (32.0-35.9); MEAN CELL VOLUME 101.9 fl (80-96); MEAN PLT VOLUME 10.1 fl (7.5-11.1); PLATELET COUNT 134 K/MM3 (134-434); RBC 4.13 M/mm3 (4.00-5.60); RDW 13.7 % (11.9-15.9); WHITE BLOOD COUNT 5.5 K/mm3 (4.0-10.0)
[2017-12-08 10:55] LABS: ALBUMIN 3.4 g/dl (3.4-5.0); ANION GAP 5 (8-16); BILIRUBIN,TOTAL 1.4 mg/dL (0.2-1.0); BLOOD UREA NITROGEN 14 mg/dL (7-18); CALCIUM 8.7 mg/dL (8.5-10.1); CHLORIDE 102 mmol/L (98-107); CO2 32 mmol/L (21-32); CREATININE 0.6 mg/dL (0.7-1.3); GLUCOSE,RANDOM 96 mg/dL (74-106); POTASSIUM 4.1 mmol/L (3.5-5.1); SGOT/AST 131 U/L (15-37); SGPT/ALT 87 U/L (12-78); SODIUM 139 mmol/L (136-145)
[2017-12-08 10:56] LABS: ALK PHOS 216 U/L (45-117)
--- NOTE | 2017-12-08 11:08 | EKG ---
Test Reason : Blood Pressure : / mmHG Vent. Rate : 059 BPM Atrial Rate : 059 BPM P-R Int : 126 ms QRS Dur : 088 ms QT Int : 466 ms P-R-T Axes : 031 028 051 degrees QTc Int : 461 ms SINUS BRADYCARDIA OTHERWISE NORMAL ECG WHEN COMPARED WITH ECG OF 09-NOV-2017 20:14, NO SIGNIFICANT CHANGE WAS FOUND Confirmed by SEB PARIS MD ([id number]) on 12/08/2017 11:07:57 AM Referred By: Confirmed By:SEB PAIRS MD
[2017-12-08] MEDS: CHLORTHALIDONE 25 MG TABLET PO SCH (12:05)
[2017-12-08] MEDS ORDERED: chlordiazePOXIDE HCL 25 MG CAPSULE PO ONE (13:00)
[2017-12-08] MEDS: MAGNESIUM HYDROX 2400MG/30ML ORAL SUSPENSION 30 ML CUP PO PRN (14:13)
[2017-12-08] MEDS: QUEtiapine FUMARATE 100 MG TABLET (FP) PO SCH (22:26)
[2017-12-08] MEDS: THIAMINE HCL 100 MG TABLET (FP) PO SCH (22:26)
[2017-12-09] MEDS ORDERED: METHADONE HCL 40 MG DISPERSABLE TABLET ONE (05:22)
[2017-12-09] MEDS ORDERED: METHADONE HCL 10 MG TABLET ONE (05:22)
[2017-12-09] MEDS: chlordiazePOXIDE HCL 25 MG CAPSULE PO SCH ×3 (06:39→17:18)
--- NOTE | 2017-12-09 10:35 | PN ---
S CIWA - CIWA Score Nausea/Vomitin Muscle Tremors: 3 Anxiety: 3 Agitation: 3 Paroxysmal Sweats: 1-Minimal Palms Moist Orientation: 0-Oriented Tacttile Disturbances: 0-None Auditory Disturbances: 0-None Visual Disturbances: 0-None Headache: 0-None Present CIWA-Ar Total Score: 12 S Progress Note (SOAP) Subjective: nasuea, sweats, interrupetd sleep, anxiety, trmeors Objective: 12/09/17 10:34 Vital Signs - 24 hr 12/08/17 12/08/17 12/08/17 11:00 11:30 12:30 Temperature Pulse Rate 65 65 61 Respiratory 22 22 22 Rate Blood Pressure 12/08/17 12/08/17 12/08/17 13:00 13:30 14:00 Temperature Pulse Rate 65 66 61 Respiratory 22 22 22 Rate Blood Pressure 12/08/17 12/08/17 12/08/17 14:30 15:00 15:06 Temperature 97.9 F Pulse Rate 70 61 61 Respiratory 22 22 22 Rate Blood Pressure 141/92 12/08/17 12/08/17 12/08/17 15:30 17:30 18:00 Temperature Pulse Rate 58 L 64 62 Respiratory 22 18 20 Rate Blood Pressure 12/08/17 12/09/17 12/09/17 18:04 00:30 03:30 Temperature 98.1 F Pulse Rate 50 L Respiratory 20 18 18 Rate Blood Pressure 138/75 12/09/17 12/09/17 06:00 10:31 Temperature 97.5 F L 97.9 F Pulse Rate 63 60 Respiratory 18 18 Rate Blood Pressure 119/72 118/70 Laboratory Tests 12/07/17 12/08/17 12/08/17 22:30 07:00 07:00 WBC 5.5 RBC 4.13 Hgb 14.3 Hct 42.1 MCV 101.9 H MCH 34.5 H MCHC 33.9 RDW 13.7 Plt Count 134 MPV 10.1 Sodium 139 Potassium 4.1 Chloride 102 Carbon Dioxide 32 Anion Gap 5 L BUN 14 Creatinine 0.6 L Creat Clearance w eGFR > 60 Random Glucose 96 Calcium 8.7 Total Bilirubin 1.4 H D AST 131 H D ALT 87 H D Alkaline Phosphatase 216 H D Total Protein 8.0 Albumin 3.4 Urine Color Straw Urine Appearance Clear Urine pH 6.0 Ur Specific [place] 1.003 Urine Protein Negative Urine Glucose (UA) Negative Urine Ketones Negative Urine Blood Negative Urine Nitrite Negative Urine Bilirubin Negative Urine Urobilinogen Negative Ur Leukocyte Esterase Negative RPR Titer HIV 1&2 Antibody Screen HIV P24 Antigen 12/08/17 12/08/17 07:00 08:30 WBC RBC Hgb Hct MCV MCH MCHC RDW Plt Count MPV Sodium Potassium Chloride Carbon Dioxide Anion Gap BUN Creatinine Creat Clearance w eGFR Random Glucose Calcium Total Bilirubin AST ALT Alkaline Phosphatase Total Protein Albumin Urine Color Urine Appearance Urine pH Ur Specific [place] Urine Protein Urine Glucose (UA) Urine Ketones Urine Blood Urine Nitrite Urine Bilirubin Urine Urobilinogen Ur Leukocyte Esterase RPR Titer Nonreactive HIV 1&2 Antibody Screen Negative HIV P24 Antigen Negative elvated lfts Assessment: 12/09/17 10:35 withdrawwal sx - cont detox, hepatitis jaundice repeat labs, fluids, encourage ambualtion
[2017-12-09] MEDS: PRENATAL VITAMINS W/ FOLIC ACID TABLET (FP) PO SCH (10:45)
[2017-12-09] MEDS: RANITIDINE HCL 150 MG TABLET (FP) PO SCH ×2 (10:45→22:17)
[2017-12-09] MEDS: CHLORTHALIDONE 25 MG TABLET PO SCH (10:45)
[2017-12-09] MEDS: METHADONE 80 MG, METHADONE 30 MG PO SCH (10:46)
[2017-12-09] MEDS: THIAMINE HCL 100 MG TABLET (FP) PO SCH (22:17)
[2017-12-09] MEDS: chlordiazePOXIDE 5 MG CAPSULE PO SCH (22:17)
[2017-12-09] MEDS: QUEtiapine FUMARATE 100 MG TABLET (FP) PO SCH (22:17)
[2017-12-09] MEDS: P-EPHED 60MG/TRIPROLIDI 2.5MG TABLET PO PRN (22:19)
[2017-12-10] MEDS ORDERED: METHADONE HCL 40 MG DISPERSABLE TABLET ONE (03:43)
[2017-12-10] MEDS ORDERED: METHADONE HCL 10 MG TABLET ONE (03:43)
[2017-12-10] MEDS: chlordiazePOXIDE 5 MG CAPSULE PO SCH ×3 (05:44→18:16)
[2017-12-10] MEDS: METHADONE 80 MG, METHADONE 30 MG PO SCH (05:45)
[2017-12-10] MEDS: CHLORTHALIDONE 25 MG TABLET PO SCH (10:28)
[2017-12-10] MEDS: PRENATAL VITAMINS W/ FOLIC ACID TABLET (FP) PO SCH (10:28)
[2017-12-10] MEDS: RANITIDINE HCL 150 MG TABLET (FP) PO SCH ×2 (10:28→22:23)
[2017-12-10 11:36] LABS: CHLORIDE 102 mmol/L (98-107); POTASSIUM 3.9 mmol/L (3.5-5.1); SODIUM 138 mmol/L (136-145)
[2017-12-10 11:40] LABS: INR 1.02 (0.82-1.09); PROTHROMBIN TIME (PATIENT) 11.5 SEC (9.98-11.88)
[2017-12-10 12:04] LABS: ALBUMIN 3.1 g/dl (3.4-5.0); ANION GAP 8 (8-16); BILIRUBIN,TOTAL 0.4 mg/dL (0.2-1.0); BLOOD UREA NITROGEN 22 mg/dL (7-18); CALCIUM 8.9 mg/dL (8.5-10.1); CO2 28 mmol/L (21-32); CREATININE 0.6 mg/dL (0.7-1.3); GLUCOSE,RANDOM 98 mg/dL (74-106); SGOT/AST 89 U/L (15-37); SGPT/ALT 73 U/L (12-78); TOT PROT 7.5 g/dl (6.4-8.2)
[2017-12-10 12:14] LABS: ALK PHOS 230 U/L (45-117)
--- NOTE | 2017-12-10 13:15 | PN ---
BHS Progress Note (SOAP) Subjective: Chills, sweats and back pain Objective: 12/10/17 13:12 Vital Signs 12/10/17 12/10/17 06:00 10:00 Temperature 97.7 F 97.9 F Pulse Rate 64 80 Respiratory 18 18 Rate Blood Pressure 130/77 109/62 Laboratory Last Values WBC 5.5 K/mm3 (4.0-10.0) 12/08/17 07:00 RBC 4.13 M/mm3 (4.00-5.60) 12/08/17 07:00 Hgb 14.3 GM/dL (11.7-16.9) 12/08/17 07:00 Hct 42.1 % (35.4-49) 12/08/17 07:00 MCV 101.9 fl (80-96) H 12/08/17 07:00 MCH 34.5 pg (25.7-33.7) H 12/08/17 07:00 MCHC 33.9 g/dl (32.0-35.9) 12/08/17 07:00 RDW 13.7 % (11.9-15.9) 12/08/17 07:00 Plt Count 134 K/MM3 (134-434) 12/08/17 07:00 MPV 10.1 fl (7.5-11.1) 12/08/17 07:00 PT with INR 11.50 SEC (9.98-11.88) 12/10/17 08:00 INR 1.02 (0.82-1.09) 12/10/17 08:00 Sodium 138 mmol/L (136-145) 12/10/17 08:00 Potassium 3.9 mmol/L (3.5-5.1) 12/10/17 08:00 Chloride 102 mmol/L (98-107) 12/10/17 08:00 Carbon Dioxide 28 mmol/L (21-32) 12/10/17 08:00 Anion Gap 8 (8-16) 12/10/17 08:00 BUN 22 mg/dL (7-18) H D 12/10/17 08:00 Creatinine 0.6 mg/dL (0.7-1.3) L 12/10/17 08:00 Creat Clearance w eGFR > 60 (>60) 12/10/17 08:00 Random Glucose 98 mg/dL (74-106) 12/10/17 08:00 Calcium 8.9 mg/dL (8.5-10.1) 12/10/17 08:00 Total Bilirubin 0.4 mg/dL (0.2-1.0) D 12/10/17 08:00 AST 89 U/L (15-37) H D 12/10/17 08:00 ALT 73 U/L (12-78) 12/10/17 08:00 Alkaline Phosphatase 230 U/L (45-117) H 12/10/17 08:00 Total Protein 7.5 g/dl (6.4-8.2) 12/10/17 08:00 Albumin 3.1 g/dl (3.4-5.0) L 12/10/17 08:00 Urine Color Straw 12/07/17 22:30 Urine Appearance Clear 12/07/17 22:30 Urine pH 6.0 (5.0-8.0) 12/07/17 22:30 Ur Specific [place] 1.003 (1.001-1.035) 12/07/17 22:30 Urine Protein Negative (NEGATIVE) 12/07/17 22:30 Urine Glucose (UA) Negative (NEGATIVE) 12/07/17 22:30 Urine Ketones Negative (NEGATIVE) 12/07/17 22:30 Urine Blood Negative (NEGATIVE) 12/07/17 22:30 Urine Nitrite Negative (NEGATIVE) 12/07/17 22:30 Urine Bilirubin Negative (<2.0 mg/dL) 12/07/17 22:30 Urine Urobilinogen Negative mg/dL (0.2-1.0) 12/07/17 22:30 Ur Leukocyte Esterase Negative (NEGATIVE) 12/07/17 22:30 RPR Titer Nonreactive (NONREACTIVE) 12/08/17 07:00 HIV 1&2 Antibody Screen Negative 12/08/17 08:30 HIV P24 Antigen Negative 12/08/17 08:30 Labs noted; T bili normalized, AST improved, ALT normalized, Alk Phos improved BUN elevated Assessment: 12/10/17 13:13 Withdrawal sx Liver disease- Hep C Plan: Continue with detox Continue to encourage oral fluid intake
[2017-12-10] MEDS: chlordiazePOXIDE HCL 10 MG CAPSULE PO SCH (22:22)
[2017-12-10] MEDS: THIAMINE HCL 100 MG TABLET (FP) PO SCH (22:22)
[2017-12-10] MEDS: QUEtiapine FUMARATE 100 MG TABLET (FP) PO SCH (22:23)
[2017-12-11] MEDS: MAGNESIUM HYDROX 2400MG/30ML ORAL SUSPENSION 30 ML CUP PO PRN (00:26)
[2017-12-11] MEDS ORDERED: METHADONE HCL 40 MG DISPERSABLE TABLET ONE (03:46)
[2017-12-11] MEDS ORDERED: METHADONE HCL 10 MG TABLET ONE (03:46)
[2017-12-11] MEDS: chlordiazePOXIDE HCL 10 MG CAPSULE PO SCH (05:23)
[2017-12-11] MEDS: METHADONE 80 MG, METHADONE 30 MG PO SCH (05:24)
[2017-12-11 06:42] VITALS: BP 140/83; PULSE 69; TEMP 96.6
--- NOTE | 2017-12-11 09:33 | DS ---
[facility] Detox Discharge Summary Admission Date: 12/07/17 Discharge Date: 12/11/17 - History Present History: Alcohol Dependence Additional Comments: 57 years old male admitted for alcohol withdrawal sx completed alcohol detox regimen tolerated well patient is alert oriented x 3 no acute distress wants to go to [facility] - Physical Exam Results Vital Signs: Vital Signs Temperature 96.6 F L 12/11/17 06:00 Pulse Rate 69 12/11/17 06:00 Respiratory Rate 16 12/11/17 06:00 Blood Pressure 140/83 12/11/17 06:00 O2 Sat by Pulse Oximetry (%) - Treatment Hospital Course: Detox Protocol Followed, Detoxed Safely, Responded well, Discharged Condition Good, Rehab Referral Accepted Patient has Accepted a Rehab Referral to: [facility] - Medication Discharge Medications: Ambulatory Orders Quetiapine Fumarate [Seroquel] 100 mg PO HS #30 tablet 12/08/17 Methadone [Dolophine -] 110 mg PO DAILY 12/11/17 Ranitidine HCl [Zantac] 150 mg PO BID #60 tablet 12/11/17 - Diagnosis (1) Alcohol dependence with uncomplicated withdrawal Current Visit: Yes Status: Acute (2) GERD (gastroesophageal reflux disease) Current Visit: Yes Status: Chronic Qualifiers: Esophagitis presence: without esophagitis Qualified Code(s): K21.9 - Gastro -esophageal reflux disease without esophagitis (3) Hepatitis-C Current Visit: Yes Status: Chronic Qualifiers: Viral hepatitis chronicity: chronic Hepatic coma status: without hepatic coma Qualified Code(s): B18.2 - Chronic viral hepatitis C (4) Nicotine dependence Current Visit: Yes Status: Acute Qualifiers: Nicotine product type: cigarettes Substance use status: in withdrawal Qualified Code(s): F17.213 - Nicotine dependence, cigarettes, with withdrawal (5) Asthma Current Visit: Yes Status: Chronic Qualifiers: Asthma severity: mild Asthma persistence: intermittent Asthma complication type: uncomplicated Qualified Code(s): J45.20 - Mild intermittent asthma, uncomplicated - AMA Did Patient Leave Against Medical Advice: No
== END 2017-12-11 10:07 | disposition home or self-care (01) | DRG 773 ==
LOC: YASAS 12:31 → Y6N 17:04
PROVIDERS: ADMIT Internal Medicine; ATTEND Internal Medicine
PROC: HZ2ZZZZ Detoxification Services for Substance Abuse Treatment (ICD-10-PCS; principal; 2017-12-07)
DX: F11.20 Opioid dependence, uncomplicated (principal); F10.230 Alcohol dependence with withdrawal, uncomplicated; F17.210 Nicotine dependence, cigarettes, uncomplicated; F10.282 Alcohol dependence with alcohol-induced sleep disorder; F19.24 Other psychoactive substance dependence with psychoactive substance-induced mood disorder; J45.20 Mild intermittent asthma, uncomplicated; K21.9 Gastro-esophageal reflux disease without esophagitis; B18.2 Chronic viral hepatitis C; Z90.81 Acquired absence of spleen
CPT/HCPCS: 36415; 80053; 81003; 85027; 85610; 86593; 87389; 93005; 93010

== ENCOUNTER 2018-11-08 13:16 | Inpatient (IN) | payer OTHER ==
[2018-11-08 20:37] VITALS: BMI 27.4
--- NOTE | 2018-11-08 20:57 | HP ---
CIWA Score Nausea/Vomitin (vomiting x 2) Muscle Tremors: 5 Anxiety: 3 Agitation: 1-Slight > Activity Paroxysmal Sweats: 2 Orientation: 0-Oriented Tacttile Disturbances: 0-None Auditory Disturbances: 0-None Visual Disturbances: 0-None Headache: 5-Severe CIWA-Ar Total Score: 19 - Admission Criteria OASAS Guidelines: Admission for Medically Managed Detox: Requires at least one of the followin. CIWA greater than 12 2. Seizures within the past 24 hours 3. Delirium tremens within the past 24 hours 4. Hallucinations within the past 24 hours 5. Acute intervention needed for co occurring medical disorder 6. Acute intervention needed for co occurring psychiatric disorder 7. Severe withdrawal that cannot be handled at a lower level of care (continued vomiting, continued diarrhea, abnormal vital signs) requiring intravenous medication and/or fluids 8. Admission ROS [facility] - [facility] Chief Complaint: Alcohol withdrawal symptoms, on MMTP Allergies/Adverse Reactions: Allergies Allergy/AdvReac Type Severity Reaction Status Date / Time No Known Allergies Allergy Verified 11/08/18 19:35 History of Present Illness: 58 years old male with a long history of alcohol dependence is seeking admission to detox. Patient has been in previous detox and reports 2 years of sobriety. He has medical history of Hep. C, arthritis, anxiety, GERD and depression. He denies suicidal ideation at this time. He is on methadone 110mg tablet oral daily at [facility]. Dose is yet to be confirmed by the nurse. Exam Limitations: No Limitations - Ebola screening Have you traveled outside of the country in the last 21 days: No Have you had contact with anyone from an Ebola affected area: No Have you been sick,other than usual withdrawal symptoms: No Do you have a fever: No - Review of Systems Constitutional: Chills, Loss of Appetite, Malaise, Night Sweats, Changes in sleep EENT: reports: Sinus Pressure Respiratory: reports: No Symptoms reported Cardiac: reports: No Symptoms Reported GI: reports: Diarrhea (x 3), Poor Appetite, Poor Fluid Intake, Vomiting (x 2), Abdominal cramping : reports: No Symptoms Reported Musculoskeletal: reports: Back Pain, Joint Pain Integumentary: reports: Dryness, Flushing Neuro: reports: Headache, Tremors Endocrine: reports: No Symptoms Reported Hematology: reports: No Symptoms Reported Psychiatric: reports: Anxious, Depressed Other Systems: Reviewed and Negative Patient History - Patient Medical History Hx Anemia: No Hx Asthma: No Hx Chronic Obstructive Pulmonary Disease (COPD): No Hx Cancer: No Hx Cardiac Disorders: No Hx Congestive Heart Failure: No Hx Hypertension: No Hx Hypercholesterolemia: No Hx Pacemaker: No HX Cerebrovascular Accident: No Hx Seizures: No Hx Dementia: No Hx Diabetes: No Hx Gastrointestinal Disorders: Yes (GERD - Not on medication) Hx Liver Disease: Yes (Hep C - Not treated) Hx Genitourinary Disorders: No Hx Sexually Transmitted Disorders: No Hx Renal Disease (ESRD): No Hx Thyroid Disease: No Hx Human Immunodeficiency Virus (HIV): No (Negative 2018) Hx Hepatitis C: Yes (Not on medication) Hx Depression: Yes (Not on medication) Hx Suicide Attempt: No (Denies suicidal ideation at this time) Hx Bipolar Disorder: Yes (Not on medication) Hx Schizophrenia: No Other Medical History: ANXIETY - Not on medication - Patient Surgical History Past Surgical History: Yes Hx Neurologic Surgery: No Hx Cataract Extraction: No Hx Cardiac Surgery: No Hx Lung Surgery: No Hx Breast Surgery: No Hx Breast Biopsy: No 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)) Hx Appendectomy: No Hx Cholecystectomy: No Hx Genitourinary Surgery: No Hx Section: No Hx Orthopedic Surgery: No Anesthesia Reaction: No - PPD History Previous Implant?: Yes ([facility] for 6 months) Documented Results: Positive w/o proof Results: cxr neg 10/20/17 PPD to be Administered?: No - Reproductive History Patient is a Female of Child Bearing Age (11 -55 yrs old): No (MALE) - Smoking Cessation Smoking history: Current every day smoker Have you smoked in the past 12 months: Yes Aproximately how many cigarettes per day: 8 Hx Chewing Tobacco Use: No Initiated information on smoking cessation: Yes 'Breaking Loose' booklet given: 11/08/18 - Substance & Tx. History Hx Alcohol Use: Yes Hx Substance Use: Yes Substance Use Type: Alcohol, Heroin Hx Substance Use Treatment: Yes ([facility]) - Substances Abused Alcohol Route: Oral Frequency: Daily Amount used: 6 cans of beer (24 ounces) Age of first use: 16 Date of Last Use: 11/08/18 Heroin Route: Injection Frequency: Daily Amount used: 2 bags Age of first use: 17 Date of Last Use: 11/08/18 Family Disease History - Family Disease History Family Disease History: Diabetes: Mother (alive, HTN), Heart Disease: Father ( dec, [place] and Asthma ), Mother, Other: Father, Mother Admission Physical Exam [facility] - Vital Signs Vital Signs: Vital Signs - 24 hr 11/08/18 19:54 Temperature 97.7 F Pulse Rate 58 L Respiratory 18 Rate Blood Pressure 130/71 - Physical General Appearance: Yes: Moderate Distress, Severe Distress, Tremorous, Anxious HEENTM: Yes: EOMI, Normal ENT Inspection, Normal Voice, FELICIANO Respiratory: Yes: Lungs Clear, Normal Breath Sounds, No Respiratory Distress Neck: Yes: Supple Breast: Yes: Breast Exam Deferred Cardiology: Yes: Bradycardia Abdominal: Yes: Normal Bowel Sounds, Soft Genitourinary: Yes: Within Normal Limits Back: Yes: Normal Inspection Musculoskeletal: Yes: Back pain, Muscle Pain Extremities: Yes: Tremors Neurological: Yes: Alert, Normal Mood/Affect Integumentary: Yes: Track Flowers (right arm) Lymphatic: Yes: Within Normal Limits - Diagnostic (1) Anxiety Current Visit: Yes Status: Chronic (2) Alcohol dependence with uncomplicated withdrawal Current Visit: Yes Status: Chronic (3) Depression Current Visit: Yes Status: Chronic Qualifiers: Depression Type: unspecified Qualified Code(s): F32.9 - Major depressive disorder, single episode, unspecified (4) Insomnia Current Visit: Yes Status: Chronic (5) Nicotine dependence Current Visit: Yes Status: Chronic Qualifiers: Nicotine product type: cigarettes Substance use status: uncomplicated Qualified Code(s): F17.210 - Nicotine dependence, cigarettes, uncomplicated (6) GERD (gastroesophageal reflux disease) Current Visit: Yes Status: Chronic Qualifiers: Esophagitis presence: without esophagitis Qualified Code(s): K21.9 - Gastro -esophageal reflux disease without esophagitis (7) Hepatitis-C Current Visit: Yes Status: Chronic Qualifiers: Viral hepatitis chronicity: chronic Hepatic coma status: without hepatic coma Qualified Code(s): B18.2 - Chronic viral hepatitis C (8) Methadone maintenance therapy patient Current Visit: Yes Status: Chronic Cleared for Admission [facility] - Detox or Rehab [facility] Level of Care: Medically Managed Detox Regimen/Protocol: Valium [facility] Breath Alcohol Content Breath Alcohol Content: 0.125 Urine Drug Screen - Results Drug Screen Negative: No Urine Drug Screen Results: BZO-Benzodiazepines, MTD-Methadone Inpatient Rehab Admission - Rehab Decision to Admit Inpatient rehab admission?: No
[2018-11-08] MEDS ORDERED: IBUPROFEN 400 MG TABLET (FP) PO PRN (21:10)
[2018-11-08] MEDS ORDERED: NICOTINE POLACRILEX 2 MG GUM BUC PRN (21:10)
[2018-11-08] MEDS ORDERED: guaiFENesin 200 MG/10 ML 10 ML UNIT-DOSE CUPS PO PRN (21:10)
[2018-11-08] MEDS ORDERED: ACETAMINOPHEN 325 MG TABLET (FP) PO PRN ×2 (21:10)
[2018-11-08] MEDS ORDERED: MAGNESIUM CITRATE 300 ML BOTTLE PO PRN (21:10)
[2018-11-08] MEDS ORDERED: METHOCARBAMOL 500 MG TABLET PO PRN (21:10)
[2018-11-08] MEDS ORDERED: MELATONIN 5 MG TABLETS PO PRN (21:10)
[2018-11-08] MEDS ORDERED: MAGNESIUM HYDROX 2400MG/30ML ORAL SUSPENSION 30 ML CUP PO PRN (21:10)
[2018-11-08] MEDS ORDERED: MENTHOL/PHENOL 1 EACH UD MM PRN (21:10)
[2018-11-08] MEDS ORDERED: ONDANSETRON *ODT* 4 MG TABLET SL PRN (21:10)
[2018-11-08] MEDS ORDERED: DICYCLOMINE HCL 10 MG CAPSULE PO PRN (21:10)
[2018-11-08] MEDS ORDERED: BISMUTH SUBSALICYLATE 524 MG/30 ML UD PO PRN (21:10)
[2018-11-08] MEDS ORDERED: diazePAM 5 MG TABLET PO PRN (21:23)
[2018-11-08] MEDS: diazePAM 5 MG TABLET PO SCH (22:30)
[2018-11-08] MEDS: MAG HYDROX/AL HYDROX/SIMETH 30 ML UNIT-DOSE CUP PO PRN (22:32)
[2018-11-09] MEDS: MAG HYDROX/AL HYDROX/SIMETH 30 ML UNIT-DOSE CUP PO PRN ×4 (04:08→22:28)
[2018-11-09] MEDS: diazePAM 5 MG TABLET PO SCH (05:17)
[2018-11-09] MEDS ORDERED: METHADONE HCL 10 MG TABLET PO ONE (08:56)
[2018-11-09] MEDS ORDERED: METHADONE 80 MG, METHADONE 30 MG PO ONE (09:15)
[2018-11-09] MEDS ORDERED: METHADONE HCL 10 MG TABLET ONE (09:30)
[2018-11-09] MEDS ORDERED: METHADONE HCL 40 MG DISPERSABLE TABLET ONE (09:30)
[2018-11-09] MEDS: PRENATAL VITAMINS W/ FOLIC ACID TABLET (FP) PO SCH (09:36)
[2018-11-09] MEDS ORDERED: THIAMINE HCL 100 MG TABLET (FP) PO SCH (10:00)
--- NOTE | 2018-11-09 10:37 | PN ---
[facility] Progress Note Note: Patient was approached twice for requested psychiatric consultation. He declined to be seen on both occasions
[2018-11-09 10:39] LABS: HEMATOCRIT 41.7 % (35.4-49); HEMOGLOBIN 14.4 GM/dL (11.7-16.9); MCH 34.9 pg (25.7-33.7); MCHC 34.4 g/dl (32.0-35.9); MEAN CELL VOLUME 101.3 fl (80-96); MEAN PLT VOLUME 10.2 fl (7.5-11.1); PLATELET COUNT 138 K/MM3 (134-434); RBC 4.12 M/mm3 (4.00-5.60); RDW 13.8 % (11.9-15.9); WHITE BLOOD COUNT 6.6 K/mm3 (4.0-10.0)
[2018-11-09 11:33] LABS: ALBUMIN 3.4 g/dl (3.4-5.0); ALK PHOS 198 U/L (45-117); ANION GAP 7 MMOL/L (8-16); BILIRUBIN,TOTAL 1.4 mg/dL (0.2-1); BLOOD UREA NITROGEN 12 mg/dL (7-18); CALCIUM 9.1 mg/dL (8.5-10.1); CHLORIDE 99 mmol/L (98-107); CO2 30 mmol/L (21-32); CREATININE 0.7 mg/dL (0.55-1.3); GLUCOSE,RANDOM 99 mg/dL (74-106); POTASSIUM 4.5 mmol/L (3.5-5.1); SGOT/AST 153 U/L (15-37); SGPT/ALT 94 U/L (13-61); SODIUM 136 mmol/L (136-145); TOT PROT 8.2 g/dl (6.4-8.2)
[2018-11-09] MEDS: chlordiazePOXIDE HCL 25 MG CAPSULE PO SCH ×2 (12:20→19:27)
--- NOTE | 2018-11-09 12:33 | PN ---
S CIWA - CIWA Score Nausea/Vomitin-No Nausea/No Vomiting Muscle Tremors: 3 Anxiety: 4-Mod. Anxious/Guarded Agitation: 4-Moderately Restless Paroxysmal Sweats: 3 Orientation: 0-Oriented Tacttile Disturbances: 0-None Auditory Disturbances: 0-None Visual Disturbances: 0-None Headache: 0-None Present CIWA-Ar Total Score: 14 [facility] Progress Note (SOAP) Subjective: sweats shakes interrupted sleep I want librium not valium. The valium isnt helping me with my withdrawals nausea headache body aches upset stomach coughing up greenish phlegm Objective: 11/09/18 12:30 Vital Signs Temperature 97.5 F L 11/09/18 10:00 Pulse Rate 59 L 11/09/18 10:00 Respiratory Rate 16 11/09/18 10:00 Blood Pressure 151/87 11/09/18 10:00 O2 Sat by Pulse Oximetry (%) Laboratory Tests 11/09/18 11/09/18 07:00 07:00 WBC 6.6 RBC 4.12 Hgb 14.4 Hct 41.7 MCV 101.3 H MCH 34.9 H MCHC 34.4 RDW 13.8 Plt Count 138 MPV 10.2 Sodium 136 Potassium 4.5 Chloride 99 Carbon Dioxide 30 Anion Gap 7 L BUN 12 Creatinine 0.7 Creat Clearance w eGFR > 60 Random Glucose 99 Calcium 9.1 Total Bilirubin 1.4 H AST 153 H ALT 94 H Alkaline Phosphatase 198 H Total Protein 8.2 Albumin 3.4 labs noted aaox3 ambulating no acute distress Assessment: 11/09/18 12:31 withdrawal sx lungs assessed some rhonici noted Plan: continue detox increase fluids z-pack ordered librium detox protocol ordered as per pt request MOM/mylanta prn zofran prn
[2018-11-09] MEDS ORDERED: AZITHROMYCIN 250 MG TABLET PO ONE (12:37)
[2018-11-09] MEDS: hydrOXYzine PAMOATE 25 MG CAPSULE (FP) PO PRN (22:26)
[2018-11-09] MEDS: RANITIDINE HCL 150 MG TABLET (FP) PO SCH (22:26)
[2018-11-09] MEDS: THIAMINE HCL 100 MG TABLET (FP) PO SCH (22:26)
[2018-11-10] MEDS: MAG HYDROX/AL HYDROX/SIMETH 30 ML UNIT-DOSE CUP PO PRN (04:09)
[2018-11-10] MEDS ORDERED: METHADONE HCL 40 MG DISPERSABLE TABLET ONE (05:12)
[2018-11-10] MEDS ORDERED: METHADONE HCL 10 MG TABLET ONE (05:13)
[2018-11-10] MEDS ORDERED: METHADONE HCL 40 MG DISPERSABLE TABLET PO SCH (06:00)
[2018-11-10] MEDS ORDERED: METHADONE 80 MG, METHADONE 30 MG PO SCH (06:00)
[2018-11-10] MEDS: chlordiazePOXIDE HCL 25 MG CAPSULE PO SCH ×4 (06:15→23:21)
[2018-11-10] MEDS: METHADONE 80 MG, METHADONE 30 MG PO SCH (06:15)
[2018-11-10] MEDS ORDERED: diazePAM 5 MG TABLET PO SCH (10:00)
[2018-11-10] MEDS: PRENATAL VITAMINS W/ FOLIC ACID TABLET (FP) PO SCH (10:23)
[2018-11-10] MEDS: AZITHROMYCIN 250 MG TABLET PO SCH (10:23)
[2018-11-10] MEDS: RANITIDINE HCL 150 MG TABLET (FP) PO SCH ×2 (10:23→23:22)
[2018-11-10] MEDS ORDERED: chlordiazePOXIDE HCL 25 MG CAPSULE PO SCH (11:00)
--- NOTE | 2018-11-10 14:17 | PN ---
[facility] CIWA - CIWA Score Nausea/Vomitin-No Nausea/No Vomiting Muscle Tremors: 3 Anxiety: 3 Agitation: 3 Paroxysmal Sweats: 2 Orientation: 0-Oriented Tacttile Disturbances: 0-None Auditory Disturbances: 0-None Visual Disturbances: 0-None Headache: 0-None Present CIWA-Ar Total Score: 11 S Progress Note (SOAP) Subjective: sweats interrupted sleep body aches chills anxiety Objective: 11/10/18 14:16 Vital Signs Temperature 98.1 F 11/10/18 13:36 Pulse Rate 55 L 11/10/18 13:36 Respiratory Rate 18 11/10/18 13:36 Blood Pressure 116/71 11/10/18 13:36 O2 Sat by Pulse Oximetry (%) Laboratory Tests 11/09/18 11/09/18 11/09/18 07:00 07:00 07:00 WBC 6.6 RBC 4.12 Hgb 14.4 Hct 41.7 MCV 101.3 H MCH 34.9 H MCHC 34.4 RDW 13.8 Plt Count 138 MPV 10.2 Sodium 136 Potassium 4.5 Chloride 99 Carbon Dioxide 30 Anion Gap 7 L BUN 12 Creatinine 0.7 Creat Clearance w eGFR > 60 Random Glucose 99 Calcium 9.1 Total Bilirubin 1.4 H AST 153 H ALT 94 H Alkaline Phosphatase 198 H Total Protein 8.2 Albumin 3.4 RPR Titer Nonreactive aaox3 ambulating no acute distress Assessment: 11/10/18 14:17 withdrawal sx Plan: continue detox increase fluids
[2018-11-10] MEDS: THIAMINE HCL 100 MG TABLET (FP) PO SCH (23:21)
[2018-11-11] MEDS: MAG HYDROX/AL HYDROX/SIMETH 30 ML UNIT-DOSE CUP PO PRN (02:50)
[2018-11-11] MEDS ORDERED: METHADONE HCL 10 MG TABLET ONE (05:43)
[2018-11-11] MEDS ORDERED: METHADONE HCL 40 MG DISPERSABLE TABLET ONE (05:43)
[2018-11-11] MEDS: chlordiazePOXIDE HCL 10 MG CAPSULE PO SCH ×4 (05:44→22:57)
[2018-11-11] MEDS: METHADONE 80 MG, METHADONE 30 MG PO SCH (05:44)
[2018-11-11] MEDS ORDERED: diazePAM 5 MG TABLET PO SCH (06:00)
[2018-11-11] MEDS: RANITIDINE HCL 150 MG TABLET (FP) PO SCH ×2 (10:32→22:57)
[2018-11-11] MEDS: PRENATAL VITAMINS W/ FOLIC ACID TABLET (FP) PO SCH (10:32)
[2018-11-11] MEDS: AZITHROMYCIN 250 MG TABLET PO SCH (10:32)
[2018-11-11] MEDS ORDERED: chlordiazePOXIDE HCL 10 MG CAPSULE PO PRN (11:00)
[2018-11-11] MEDS ORDERED: chlordiazePOXIDE HCL 10 MG CAPSULE PO SCH (11:00)
--- NOTE | 2018-11-11 12:40 | PN ---
[facility] Progress Note (SOAP) Subjective: sweats shakes interrupted sleep Objective: 11/11/18 12:40 Vital Signs Temperature 97.7 F 11/11/18 11:40 Pulse Rate 67 11/11/18 11:40 Respiratory Rate 18 11/11/18 11:40 Blood Pressure 118/80 11/11/18 11:40 O2 Sat by Pulse Oximetry (%) aaox3 ambulating no acute distress Assessment: 11/11/18 12:41 withdrawal sx Plan: continue detox increase fluids
[2018-11-11] MEDS: THIAMINE HCL 100 MG TABLET (FP) PO SCH (22:57)
[2018-11-12] MEDS ORDERED: METHADONE HCL 10 MG TABLET ONE (04:48)
[2018-11-12] MEDS ORDERED: METHADONE HCL 40 MG DISPERSABLE TABLET ONE (04:48)
[2018-11-12] MEDS: chlordiazePOXIDE HCL 10 MG CAPSULE PO SCH ×2 (05:35→17:19)
[2018-11-12] MEDS: METHADONE 80 MG, METHADONE 30 MG PO SCH (05:35)
[2018-11-12] MEDS: PRENATAL VITAMINS W/ FOLIC ACID TABLET (FP) PO SCH (10:22)
[2018-11-12] MEDS: RANITIDINE HCL 150 MG TABLET (FP) PO SCH ×2 (10:22→21:05)
[2018-11-12] MEDS: AZITHROMYCIN 250 MG TABLET PO SCH (10:22)
[2018-11-12] MEDS ORDERED: chlordiazePOXIDE HCL 10 MG CAPSULE PO SCH (11:00)
--- NOTE | 2018-11-12 18:22 | PN ---
[facility] Progress Note (SOAP) Subjective: Chills, sweating, indigestion Objective: 11/12/18 18:18 Last Vital Signs Temp Pulse Resp BP Pulse Ox 98.3 F 80 18 127/80 11/12/18 14:22 11/12/18 14:22 11/12/18 14:22 11/12/18 14:22 Laboratory Tests 11/09/18 11/09/18 11/09/18 07:00 07:00 07:00 WBC 6.6 RBC 4.12 Hgb 14.4 Hct 41.7 MCV 101.3 H MCH 34.9 H MCHC 34.4 RDW 13.8 Plt Count 138 MPV 10.2 Sodium 136 Potassium 4.5 Chloride 99 Carbon Dioxide 30 Anion Gap 7 L BUN 12 Creatinine 0.7 Creat Clearance w eGFR > 60 Random Glucose 99 Calcium 9.1 Total Bilirubin 1.4 H AST 153 H ALT 94 H Alkaline Phosphatase 198 H Total Protein 8.2 Albumin 3.4 RPR Titer Nonreactive Labs reviewed: total bilirubin 1.4, AST 153, ALT 94, Alk phos 198 Assessment: 11/12/18 18:20 Withdrawal symptoms Elevated LFTs noted Plan: Withdrawal symptoms Encouraged PO water hydration Elevated LFTs: repeat hepatic panel in AM
[2018-11-12] MEDS: THIAMINE HCL 100 MG TABLET (FP) PO SCH (21:05)
[2018-11-12] MEDS: hydrOXYzine PAMOATE 25 MG CAPSULE (FP) PO PRN (21:05)
[2018-11-13] MEDS ORDERED: METHADONE HCL 40 MG DISPERSABLE TABLET ONE (04:35)
[2018-11-13] MEDS ORDERED: METHADONE HCL 10 MG TABLET ONE (04:35)
[2018-11-13] MEDS: chlordiazePOXIDE HCL 10 MG CAPSULE PO SCH (06:00)
[2018-11-13] MEDS: METHADONE 80 MG, METHADONE 30 MG PO SCH (06:00)
[2018-11-13] MEDS: MAG HYDROX/AL HYDROX/SIMETH 30 ML UNIT-DOSE CUP PO PRN (06:02)
--- NOTE | 2018-11-13 09:43 | DS ---
[facility] Detox Discharge Summary Admission Date: 11/08/18 Discharge Date: 11/13/18 - History Present History: Alcohol Dependence, MMTP - Physical Exam Results Vital Signs: Vital Signs Temperature 97.7 F 11/13/18 06:00 Pulse Rate 53 L 11/13/18 06:00 Respiratory Rate 16 11/13/18 06:00 Blood Pressure 142/77 11/13/18 06:00 O2 Sat by Pulse Oximetry (%) - Treatment Hospital Course: Detox Protocol Followed, Detoxed Safely, Responded well, Discharged Condition Good, Rehab Referral Accepted - Medication Discharge Medications: Ambulatory Orders Methadone [Dolophine -] 110 mg PO DAILY 12/11/17 Ranitidine HCl [Zantac] 150 mg PO BID #60 tablet 12/11/17 - Diagnosis (1) Alcohol dependence with uncomplicated withdrawal Current Visit: Yes Status: Chronic (2) Anxiety Current Visit: Yes Status: Chronic (3) Depression Current Visit: Yes Status: Chronic Qualifiers: Depression Type: unspecified Qualified Code(s): F32.9 - Major depressive disorder, single episode, unspecified (4) GERD (gastroesophageal reflux disease) Current Visit: Yes Status: Chronic Qualifiers: Esophagitis presence: without esophagitis Qualified Code(s): K21.9 - Gastro -esophageal reflux disease without esophagitis (5) Hepatitis-C Current Visit: Yes Status: Chronic Qualifiers: Viral hepatitis chronicity: chronic Hepatic coma status: without hepatic coma Qualified Code(s): B18.2 - Chronic viral hepatitis C (6) Insomnia Current Visit: Yes Status: Chronic (7) Methadone maintenance therapy patient Current Visit: Yes Status: Chronic (8) Nicotine dependence Current Visit: Yes Status: Chronic Qualifiers: Nicotine product type: cigarettes Substance use status: uncomplicated Qualified Code(s): F17.210 - Nicotine dependence, cigarettes, uncomplicated (9) Alcohol induced insomnia Current Visit: No Status: Acute (10) Bronchitis Current Visit: No Status: Acute (11) Difficulty sleeping Current Visit: No Status: Acute (12) H/O recurrent urinary tract infection Current Visit: No Status: Acute (13) Incisional hernia Current Visit: No Status: Acute Qualifiers: Obstruction and gangrene presence: without obstruction or gangrene Qualified Code(s): K43.2 - Incisional hernia without obstruction or gangrene; K43.91 - Incisional hernia, without obstruction or gangrene (14) Weight loss Current Visit: No Status: Acute (15) Allergic rhinitis Current Visit: No Status: Chronic Qualifiers: Allergic rhinitis trigger: unspecified Allergic rhinitis seasonality: unspecified seasonality Qualified Code(s): J30.9 - Allergic rhinitis, unspecified (16) Asthma Current Visit: No Status: Chronic Qualifiers: Asthma severity: mild Asthma persistence: intermittent Asthma complication type: uncomplicated Qualified Code(s): J45.20 - Mild intermittent asthma, uncomplicated (17) History of psychiatric disorder Current Visit: No Status: Chronic (18) Umbilical hernia Current Visit: No Status: Chronic Qualifiers: Obstruction and gangrene presence: without obstruction or gangrene Qualified Code(s): K42.9 - Umbilical hernia without obstruction or gangrene (19) Drug-induced mood disorder Current Visit: No Status: Suspected (20) Substance induced mood disorder Current Visit: No Status: Suspected (21) History of splenectomy Current Visit: No Status: Resolved - AMA Did Patient Leave Against Medical Advice: No (referred to his MMTP)
[2018-11-13 09:47] VITALS: BP 139/81; PULSE 56; TEMP 98.1
== END 2018-11-13 09:21 | disposition home or self-care (01) | DRG 773 ==
LOC: YASAS 13:16 → Y6N 21:31
PROVIDERS: ADMIT Surgery; ATTEND Surgery
PROC: HZ2ZZZZ Detoxification Services for Substance Abuse Treatment (ICD-10-PCS; principal; 2018-11-08)
DX: F10.230 Alcohol dependence with withdrawal, uncomplicated (principal); F10.282 Alcohol dependence with alcohol-induced sleep disorder; F11.20 Opioid dependence, uncomplicated; F17.210 Nicotine dependence, cigarettes, uncomplicated; F31.9 Bipolar disorder, unspecified; F19.24 Other psychoactive substance dependence with psychoactive substance-induced mood disorder; R94.5 Abnormal results of liver function studies; K42.9 Umbilical hernia without obstruction or gangrene; K21.9 Gastro-esophageal reflux disease without esophagitis; B18.2 Chronic viral hepatitis C; G47.00 Insomnia, unspecified; J20.9 Acute bronchitis, unspecified; J30.9 Allergic rhinitis, unspecified; J45.20 Mild intermittent asthma, uncomplicated; R00.1 Bradycardia, unspecified; Z87.440 Personal history of urinary (tract) infections; Z90.81 Acquired absence of spleen
CPT/HCPCS: 36415; 71046-TC-FY; 80053; 85027; 86593

== ENCOUNTER 2018-12-07 12:38 | Inpatient (IN) | payer OTHER ==
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
[2018-12-07] MEDS ORDERED: ACETAMINOPHEN 325 MG TABLET (FP) PO PRN (16:31)
[2018-12-07] MEDS ORDERED: BISMUTH SUBSALICYLATE 524 MG/30 ML UD PO PRN (16:31)
[2018-12-07] MEDS ORDERED: ONDANSETRON *ODT* 4 MG TABLET SL PRN (16:31)
[2018-12-07] MEDS ORDERED: MENTHOL/PHENOL 1 EACH UD MM PRN (16:31)
[2018-12-07] MEDS ORDERED: MAGNESIUM CITRATE 300 ML BOTTLE PO PRN (16:31)
[2018-12-07] MEDS ORDERED: LORazepam 1 MG TABLET PO PRN (16:31)
[2018-12-07] MEDS ORDERED: NICOTINE POLACRILEX 2 MG GUM BUC PRN (16:31)
[2018-12-07] MEDS: LORazepam 2 MG TABLET PO SCH ×2 (18:23→22:08)
[2018-12-07] MEDS: BACITRACIN/POLYMYXIN B SULFATE 15 GM TUBE TP SCH (18:55)
--- NOTE | 2018-12-07 20:10 | PN ---
[facility] Progress Note Note: Patient reports hx of PPD+ chest x-ray ordered
[2018-12-07] MEDS: SULFAMETHOXAZOLE/TRIMETHOPRIM 800MG/160MG D.S. TABLET PO SCH (22:08)
[2018-12-07] MEDS: THIAMINE HCL 100 MG TABLET (FP) PO SCH (22:08)
[2018-12-07] MEDS: RANITIDINE HCL 150 MG TABLET (FP) PO SCH (22:08)
[2018-12-07] MEDS: MAG HYDROX/AL HYDROX/SIMETH 30 ML UNIT-DOSE CUP PO PRN (22:47)
[2018-12-08] MEDS: IBUPROFEN 400 MG TABLET (FP) PO PRN (01:03)
[2018-12-08] MEDS: LORazepam 2 MG TABLET PO SCH (05:48)
--- NOTE | 2018-12-08 08:12 | PN ---
S Progress Note (SOAP) Subjective: Patient states slipped and fell in dining room. States milk was on floor. Objective: Alert and oriented when assessed immediately after fall (0645). Gait slightly unsteady. PERRL. Superficial laceration occipital area of head w/ bleeding that subsided w/ pressure. Rcv'd Ativan 2 mg @ 0548. Vital Signs 12/08/18 12/08/18 12/08/18 00:30 01:00 01:30 Temperature Pulse Rate 73 71 Respiratory 18 18 18 Rate Blood Pressure 12/08/18 12/08/18 12/08/18 02:00 02:30 03:00 Temperature Pulse Rate 75 79 80 Respiratory 18 18 18 Rate Blood Pressure 12/08/18 12/08/18 12/08/18 03:30 04:00 04:30 Temperature Pulse Rate 81 83 70 Respiratory 18 18 18 Rate Blood Pressure 12/08/18 12/08/18 12/08/18 05:00 05:30 06:00 Temperature Pulse Rate 68 62 58 L Respiratory 18 18 18 Rate Blood Pressure 12/08/18 12/08/18 12/08/18 06:19 06:30 06:50 Temperature 99.3 F 97.0 F L Pulse Rate 58 L 60 59 L Respiratory 18 18 18 Rate Blood Pressure 119/71 154/91 12/08/18 12/08/18 12/08/18 07:00 07:30 08:00 Temperature Pulse Rate 69 71 76 Respiratory 18 18 18 Rate Blood Pressure Assessment: Occipital laceration Alcohol withdrawal. Plan: Fall Protocol 1 Send to [facility] ED via ambulance. Report given to Dr. Mercado. Discontinue Ativan 2 mg. D/C Ativan 1 mg PO RN meds. Monitor level of alertness and pulse after future doses of Ativan. Fall Risk Protocol Continuous.
[2018-12-08 10:34] LABS: ALBUMIN 3.2 g/dl (3.4-5.0); ALK PHOS 209 U/L (45-117); ANION GAP 3 MMOL/L (8-16); BILIRUBIN,TOTAL 2.1 mg/dL (0.2-1); BLOOD UREA NITROGEN 17 mg/dL (7-18); CALCIUM 8.6 mg/dL (8.5-10.1); CHLORIDE 101 mmol/L (98-107); CO2 30 mmol/L (21-32); CREATININE 0.8 mg/dL (0.55-1.3); GLUCOSE,RANDOM 108 mg/dL (74-106); POTASSIUM 4.1 mmol/L (3.5-5.1); SGOT/AST 273 U/L (15-37); SGPT/ALT 148 U/L (13-61); SODIUM 134 mmol/L (136-145); TOT PROT 7.8 g/dl (6.4-8.2)
[2018-12-08 10:43] LABS: HEMATOCRIT 35.4 % (35.4-49); MCH 34.7 pg (25.7-33.7); MCHC 34.1 g/dl (32.0-35.9); MEAN PLT VOLUME 11.4 fl (7.5-11.1); PLATELET COUNT 83 K/MM3 (134-434); RBC 3.47 M/mm3 (4.00-5.60); RDW 13.8 % (11.9-15.9); WHITE BLOOD COUNT 8.2 K/mm3 (4.0-10.0)
[2018-12-08] MEDS: RANITIDINE HCL 150 MG TABLET (FP) PO SCH ×2 (11:49→22:10)
[2018-12-08] MEDS: SULFAMETHOXAZOLE/TRIMETHOPRIM 800MG/160MG D.S. TABLET PO SCH ×2 (11:50→22:10)
[2018-12-08] MEDS: PRENATAL VITAMINS W/ FOLIC ACID TABLET (FP) PO SCH (11:50)
[2018-12-08] MEDS: BACITRACIN/POLYMYXIN B SULFATE 15 GM TUBE TP SCH (13:14)
[2018-12-08] MEDS ORDERED: PROCHLORPERAZINE MALEATE 5 MG TABLET PO PRN (14:28)
[2018-12-08] MEDS ORDERED: METHADONE HCL 10 MG TABLET PO SCH (14:30)
--- NOTE | 2018-12-08 15:13 | PN ---
[facility] CIWA - CIWA Score Nausea/Vomitin-No Nausea/No Vomiting Muscle Tremors: 3 Anxiety: 3 Agitation: 0-Normal Activity Paroxysmal Sweats: 3 Orientation: 0-Oriented Tacttile Disturbances: 2-Mild Itch/Numbness/Burn Auditory Disturbances: 0-None Visual Disturbances: 2-Mild Sensitivity Headache: 0-None Present CIWA-Ar Total Score: 13 S Progress Note (SOAP) Subjective: Stomach Cramping, Diarrhea, Sweating, Tremors, Body Aches. Objective: 12/08/18 15:07 Vital Signs Temperature 97.1 F L 12/08/18 14:46 Pulse Rate 54 L 12/08/18 14:46 Respiratory Rate 18 12/08/18 14:46 Blood Pressure 111/60 12/08/18 14:46 O2 Sat by Pulse Oximetry (%) Laboratory Tests 12/08/18 12/08/18 12/08/18 07:00 07:00 07:00 WBC 8.2 RBC 3.47 L Hgb 12.0 Hct 35.4 D MCV 102.0 H MCH 34.7 H MCHC 34.1 RDW 13.8 Plt Count 83 L D MPV 11.4 H D Platelet Comment No clumping noted Sodium 134 L Potassium 4.1 Chloride 101 Carbon Dioxide 30 Anion Gap 3 L BUN 17 Creatinine 0.8 Creat Clearance w eGFR 100.00 Random Glucose 108 H Calcium 8.6 Total Bilirubin 2.1 H AST 273 H ALT 148 H Alkaline Phosphatase 209 H Total Protein 7.8 Albumin 3.2 L RPR Titer Nonreactive LABS NOTED. PATIENT HAS HAD ELEVATED LIVER ENZYMES AND ELEVATED TOTAL BILIRUBIN LEVELS ON PREVIOUS ADMISSIONS. 12/08/18 15:12 Assessment: 12/08/18 15:07 WITHDRAWAL SYMPTOMS. ELEVATED LIVER ENZYMES. THROMBOCYTOPENIA. HYPERBILIRUBINEMIA. 12/08/18 15:08 Plan: CONTINUE DETOX. INCREASE DAILY PO FLUID INTAKE. HFP ON 12/08/2018 FOR ELEVATED LIVER ENZYMES AND TOTAL BILIRUBIN LEVEL NOTED ON ADMISSION TO DETOX. PRN PEPTO-BISMOL PO FOR DIARRHEA. PATIENT RETURNED FROM [facility] ER EARLIER. HEAD CT SCAN NEGATIVE FOR ACUTE INJURY/ DISEASE PROCESS. 2 JAVID NOTED ON LEF PARIETAL ASPECT OF SKULL. NO BLEEDING, ERYTHEMA, SWELLING , OR UNUSUAL DISCHARGE NOTED AT OR AROUND AFFECTED SITE. PATIENT A & O X 2 (UNCERTAIN ABOUT CURRENT DAY / DATE). PATIENT OBSERVED AMBULATING ON UNIT. IN NO ACUTE DISTRESS. PERRLA. EOM INTACT. ATIVAN DETOX PROTOCOL PREVIOUSLY MODIFIED BY OTHER MEDICAL PROVIDER SO TO HELP REDUCE RISK OF EXCESSIVE SEDATION FOR PATIENT. WILL CONTINUE TO MONITOR PATIENT.
[2018-12-08] MEDS ORDERED: METHADONE HCL 40 MG DISPERSABLE TABLET ONE (15:28)
[2018-12-08] MEDS ORDERED: METHADONE HCL 10 MG TABLET ONE (15:28)
[2018-12-08] MEDS: METHADONE 80 MG, METHADONE 30 MG PO SCH (15:45)
[2018-12-08] MEDS: MAGNESIUM HYDROX 2400MG/30ML ORAL SUSPENSION 30 ML CUP PO PRN (15:48)
[2018-12-08] MEDS: LORazepam 1 MG TABLET PO SCH ×2 (17:21→22:10)
[2018-12-08] MEDS: THIAMINE HCL 100 MG TABLET (FP) PO SCH (22:10)
[2018-12-08] MEDS: MELATONIN 5 MG TABLETS PO PRN (23:40)
[2018-12-09] MEDS: MAG HYDROX/AL HYDROX/SIMETH 30 ML UNIT-DOSE CUP PO PRN (00:50)
[2018-12-09] MEDS: LORazepam 1 MG TABLET PO SCH ×2 (05:15→13:58)
[2018-12-09] MEDS ORDERED: METHADONE HCL 10 MG TABLET ONE (10:18)
[2018-12-09] MEDS ORDERED: METHADONE HCL 40 MG DISPERSABLE TABLET ONE (10:19)
[2018-12-09] MEDS: METHADONE 80 MG, METHADONE 30 MG PO SCH (10:20)
[2018-12-09] MEDS: SULFAMETHOXAZOLE/TRIMETHOPRIM 800MG/160MG D.S. TABLET PO SCH ×2 (10:20→22:18)
[2018-12-09] MEDS: RANITIDINE HCL 150 MG TABLET (FP) PO SCH ×2 (10:20→22:18)
[2018-12-09] MEDS: BACITRACIN/POLYMYXIN B SULFATE 15 GM TUBE TP SCH (10:21)
[2018-12-09] MEDS: PRENATAL VITAMINS W/ FOLIC ACID TABLET (FP) PO SCH (10:23)
--- NOTE | 2018-12-09 13:17 | PN ---
S CIWA - CIWA Score Nausea/Vomitin Muscle Tremors: None Anxiety: 3 Agitation: 1-Slight > Activity Paroxysmal Sweats: 3 Orientation: 0-Oriented Tacttile Disturbances: 2-Mild Itch/Numbness/Burn Auditory Disturbances: 0-None Visual Disturbances: 1-Very Mild Sensitivity Headache: 0-None Present CIWA-Ar Total Score: 13 BHS Progress Note (SOAP) Subjective: Sweating, Nausea, Body Aches. Objective: PATIENT A & O X 3, OBSERVED AMBULATING ON UNIT. IN NO ACUTE DISTRESS. 12/09/18 13:17 Vital Signs Temperature 98.0 F 12/09/18 09:06 Pulse Rate 72 12/09/18 09:06 Respiratory Rate 18 12/09/18 09:06 Blood Pressure 134/76 12/09/18 09:06 O2 Sat by Pulse Oximetry (%) Laboratory Tests 12/08/18 12/08/18 12/08/18 07:00 07:00 07:00 WBC 8.2 RBC 3.47 L Hgb 12.0 Hct 35.4 D MCV 102.0 H MCH 34.7 H MCHC 34.1 RDW 13.8 Plt Count 83 L D MPV 11.4 H D Platelet Comment No clumping noted Sodium 134 L Potassium 4.1 Chloride 101 Carbon Dioxide 30 Anion Gap 3 L BUN 17 Creatinine 0.8 Creat Clearance w eGFR 100.00 Random Glucose 108 H Calcium 8.6 Total Bilirubin 2.1 H AST 273 H ALT 148 H Alkaline Phosphatase 209 H Total Protein 7.8 Albumin 3.2 L RPR Titer Nonreactive LABS NOTED. Assessment: 12/09/18 13:17 WITHDRAWAL SYMPTOMS. ELEVATED LIVER ENZYMES. THROMBOCYTOPENIA. Plan: CONTINUE DETOX. PRN COMPAZINE PO FOR NAUSEA. HFP FOR TOMORROW AM TO SEE IF ANY CHANGE IN ELEVATED ADMISSION LIVER ENZYMES AND BILIRUBIN LEVELS. WOUND ON LEFT LOWER LEG NOTED. WOUND APPEARS TO BE HEALING WELL. SWELLING AND ERYTHEMA NOTED IN TISSUES SURROUNDING WOUND SITE. CONTINUE WOUND CARE PREVIOUSLY DIRECTED. TWO AJVID OBSERVED TO BE IN PLACE ON HEAD. NO SWELLING, ERYTHEMA, OR UNUSUAL DISCHARGE NOTED IN AREA OF OR SURROUNDING WOUND SITE.
[2018-12-09] MEDS ORDERED: LORazepam 0.5 MG TABLET PO PRN (17:00)
[2018-12-09] MEDS: MAGNESIUM HYDROX 2400MG/30ML ORAL SUSPENSION 30 ML CUP PO PRN (17:13)
[2018-12-09] MEDS: LORazepam 0.5 MG TABLET PO SCH ×2 (17:53→22:18)
[2018-12-09] MEDS: THIAMINE HCL 100 MG TABLET (FP) PO SCH (22:18)
[2018-12-10] MEDS: MAG HYDROX/AL HYDROX/SIMETH 30 ML UNIT-DOSE CUP PO PRN ×2 (00:43→22:05)
[2018-12-10] MEDS: LORazepam 0.5 MG TABLET PO SCH ×3 (05:27→17:21)
[2018-12-10] MEDS ORDERED: METHADONE HCL 10 MG TABLET ONE (08:27)
[2018-12-10] MEDS ORDERED: METHADONE HCL 40 MG DISPERSABLE TABLET ONE (08:28)
[2018-12-10 10:03] LABS: ALBUMIN 3.2 g/dl (3.4-5.0); BILIRUBIN,DIRECT 0.7 mg/dL (0.0-0.2); BILIRUBIN,TOTAL 1.2 mg/dL (0.2-1); TOT PROT 7.9 g/dl (6.4-8.2)
[2018-12-10] MEDS: METHADONE 80 MG, METHADONE 30 MG PO SCH (10:06)
[2018-12-10] MEDS: SULFAMETHOXAZOLE/TRIMETHOPRIM 800MG/160MG D.S. TABLET PO SCH ×2 (10:06→22:04)
[2018-12-10] MEDS: RANITIDINE HCL 150 MG TABLET (FP) PO SCH ×2 (10:07→22:04)
[2018-12-10] MEDS: PRENATAL VITAMINS W/ FOLIC ACID TABLET (FP) PO SCH (10:07)
[2018-12-10] MEDS: IBUPROFEN 400 MG TABLET (FP) PO PRN (10:08)
[2018-12-10] MEDS: BACITRACIN/POLYMYXIN B SULFATE 15 GM TUBE TP SCH (11:18)
--- NOTE | 2018-12-10 15:38 | PN ---
S CIWA - CIWA Score Nausea/Vomitin-Mild Nausea/No Vomiting Muscle Tremors: 2 Anxiety: 2 Agitation: 1-Slight > Activity Paroxysmal Sweats: 1-Minimal Palms Moist Orientation: 1-Uncertain about Date Tacttile Disturbances: 0-None Auditory Disturbances: 0-None Visual Disturbances: 0-None Headache: 1-Very Mild CIWA-Ar Total Score: 9 BHS Progress Note (SOAP) Subjective: report that water on floor in the day room so he fell skull clip intact no signs of infection none tender no exudate no swell left inner calf surgical incision would swell erythema left leg has hyperpigmented patches due to vascular insufficiency cleaned with saline cover with steril gauze patient stated that he has appointment with the wound doctor every other day for dressing change Objective: 12/10/18 15:37 Vital Signs Temperature 97.6 F 12/10/18 13:35 Pulse Rate 67 12/10/18 13:35 Respiratory Rate 18 12/10/18 13:35 Blood Pressure 148/84 12/10/18 13:35 O2 Sat by Pulse Oximetry (%) Laboratory Last Values WBC 8.2 K/mm3 (4.0-10.0) 12/08/18 07:00 RBC 3.47 M/mm3 (4.00-5.60) L 12/08/18 07:00 Hgb 12.0 GM/dL (11.7-16.9) 12/08/18 07:00 Hct 35.4 % (35.4-49) D 12/08/18 07:00 MCV 102.0 fl (80-96) H 12/08/18 07:00 MCH 34.7 pg (25.7-33.7) H 12/08/18 07:00 MCHC 34.1 g/dl (32.0-35.9) 12/08/18 07:00 RDW 13.8 % (11.9-15.9) 12/08/18 07:00 Plt Count 83 K/MM3 (134-434) L D 12/08/18 07:00 MPV 11.4 fl (7.5-11.1) H D 12/08/18 07:00 Platelet Comment No clumping noted 12/08/18 07:00 Sodium 134 mmol/L (136-145) L 12/08/18 07:00 Potassium 4.1 mmol/L (3.5-5.1) 12/08/18 07:00 Chloride 101 mmol/L (98-107) 12/08/18 07:00 Carbon Dioxide 30 mmol/L (21-32) 12/08/18 07:00 Anion Gap 3 MMOL/L (8-16) L 12/08/18 07:00 BUN 17 mg/dL (7-18) 12/08/18 07:00 Creatinine 0.8 mg/dL (0.55-1.3) 12/08/18 07:00 Creat Clearance w eGFR 100.00 (>60) 12/08/18 07:00 Random Glucose 108 mg/dL (74-106) H 12/08/18 07:00 Calcium 8.6 mg/dL (8.5-10.1) 12/08/18 07:00 Total Bilirubin 1.2 mg/dL (0.2-1) H 12/10/18 07:50 Direct Bilirubin 0.7 mg/dL (0.0-0.2) H 12/10/18 07:50 AST 134 U/L (15-37) H 12/10/18 07:50 ALT 110 U/L (13-61) H 12/10/18 07:50 Alkaline Phosphatase 234 U/L (45-117) H 12/10/18 07:50 Total Protein 7.9 g/dl (6.4-8.2) 12/10/18 07:50 Albumin 3.2 g/dl (3.4-5.0) L 12/10/18 07:50 RPR Titer Nonreactive (NONREACTIVE) 12/08/18 07:00 lab noted patient agrees to bring in lab report to follow up care appointment patient understand alcohol related liver insults 12/10/18 15:38 Assessment: 12/10/18 15:39 withdrawal sx Plan: continue detox
[2018-12-10] MEDS: THIAMINE HCL 100 MG TABLET (FP) PO SCH (22:04)
[2018-12-10] MEDS: MELATONIN 5 MG TABLETS PO PRN (22:05)
[2018-12-11] MEDS: MAGNESIUM HYDROX 2400MG/30ML ORAL SUSPENSION 30 ML CUP PO PRN (02:59)
[2018-12-11] MEDS ORDERED: METHADONE HCL 10 MG TABLET ONE (04:28)
[2018-12-11] MEDS ORDERED: METHADONE HCL 40 MG DISPERSABLE TABLET ONE (04:28)
[2018-12-11] MEDS: METHADONE 80 MG, METHADONE 30 MG PO SCH (05:15)
[2018-12-11 09:20] VITALS: BP 116/73; PULSE 67; TEMP 98.2
--- NOTE | 2018-12-11 11:04 | DS ---
[facility] Detox Discharge Summary Admission Date: 12/07/18 Discharge Date: 12/11/18 - History Present History: Alcohol Dependence Additional Comments: 58 years old male admitted on 12/07/18 for alcohol withdrawal stabilization completed alcohol detox regimen aftercare [facility] where he was treated for left lower inner calf injury on 12/07/18 patient has appointment every other day for dressing change at [facility] patient agrees to go to [facility] alcohol rehab program Pertinent Past History: patient agrees to return to methadone program for medical and mental issues as well as left lower calf and left posterior periatal scalp 2 clips from fall wound care patient is alert oriented x 3 had shower and ate breakfast ADLs independent denies headache denies dizziness denies blurred vision - Physical Exam Results Vital Signs: Vital Signs Temperature 98.2 F 12/11/18 08:45 Pulse Rate 67 12/11/18 08:45 Respiratory Rate 18 12/11/18 08:45 Blood Pressure 116/73 12/11/18 08:45 O2 Sat by Pulse Oximetry (%) Pertinent Admission Physical Exam Findings: alcohol withdrawal sx Laboratory Last Values WBC 8.2 K/mm3 (4.0-10.0) 12/08/18 07:00 RBC 3.47 M/mm3 (4.00-5.60) L 12/08/18 07:00 Hgb 12.0 GM/dL (11.7-16.9) 12/08/18 07:00 Hct 35.4 % (35.4-49) D 12/08/18 07:00 MCV 102.0 fl (80-96) H 12/08/18 07:00 MCH 34.7 pg (25.7-33.7) H 12/08/18 07:00 MCHC 34.1 g/dl (32.0-35.9) 12/08/18 07:00 RDW 13.8 % (11.9-15.9) 12/08/18 07:00 Plt Count 83 K/MM3 (134-434) L D 12/08/18 07:00 MPV 11.4 fl (7.5-11.1) H D 12/08/18 07:00 Platelet Comment No clumping noted 12/08/18 07:00 Sodium 134 mmol/L (136-145) L 12/08/18 07:00 Potassium 4.1 mmol/L (3.5-5.1) 12/08/18 07:00 Chloride 101 mmol/L (98-107) 12/08/18 07:00 Carbon Dioxide 30 mmol/L (21-32) 12/08/18 07:00 Anion Gap 3 MMOL/L (8-16) L 12/08/18 07:00 BUN 17 mg/dL (7-18) 12/08/18 07:00 Creatinine 0.8 mg/dL (0.55-1.3) 12/08/18 07:00 Creat Clearance w eGFR 100.00 (>60) 12/08/18 07:00 Random Glucose 108 mg/dL (74-106) H 12/08/18 07:00 Calcium 8.6 mg/dL (8.5-10.1) 12/08/18 07:00 Total Bilirubin 1.2 mg/dL (0.2-1) H 12/10/18 07:50 Direct Bilirubin 0.7 mg/dL (0.0-0.2) H 12/10/18 07:50 AST 134 U/L (15-37) H 12/10/18 07:50 ALT 110 U/L (13-61) H 12/10/18 07:50 Alkaline Phosphatase 234 U/L (45-117) H 12/10/18 07:50 Total Protein 7.9 g/dl (6.4-8.2) 12/10/18 07:50 Albumin 3.2 g/dl (3.4-5.0) L 12/10/18 07:50 RPR Titer Nonreactive (NONREACTIVE) 12/08/18 07:00 lab noted bring in medication list and lab report to follow up appointment - Treatment Hospital Course: Detox Protocol Followed, Detoxed Safely, Responded well, Discharged Condition Good, Rehab Referral Accepted Patient has Accepted a Rehab Referral to: methadone maintenance program - Medication Discharge Medications: Ambulatory Orders Methadone [Dolophine -] 110 mg PO DAILY 12/11/17 Ranitidine HCl [Zantac] 150 mg PO BID #60 tablet 12/11/17 Sulfamethoxazole/Trimethoprim [Bactrim Ds Tablet] 1 each PO BID #14 tablet 12/10 - Diagnosis (1) Alcohol dependence with uncomplicated withdrawal Status: Acute (2) Laceration of head Status: Acute Qualifiers: Encounter type: subsequent encounter Location of open wound of head: scalp Foreign body presence: without foreign body Qualified Code(s): S01.01XD - Laceration without foreign body of scalp, subsequent encounter (3) Asthma Status: Chronic Qualifiers: Asthma severity: mild Asthma persistence: intermittent Asthma complication type: uncomplicated Qualified Code(s): J45.20 - Mild intermittent asthma, uncomplicated (4) GERD (gastroesophageal reflux disease) Status: Chronic Qualifiers: Esophagitis presence: without esophagitis Qualified Code(s): K21.9 - Gastro -esophageal reflux disease without esophagitis (5) Hepatitis-C Status: Chronic Qualifiers: Viral hepatitis chronicity: chronic Hepatic coma status: without hepatic coma Qualified Code(s): B18.2 - Chronic viral hepatitis C (6) Methadone maintenance therapy patient Status: Chronic (7) Nicotine dependence Status: Acute Qualifiers: Nicotine product type: cigarettes Substance use status: in withdrawal Qualified Code(s): F17.213 - Nicotine dependence, cigarettes, with withdrawal (8) Substance induced mood disorder Status: Suspected (9) History of splenectomy Status: Resolved - AMA Did Patient Leave Against Medical Advice: No
== END 2018-12-11 09:14 | disposition home or self-care (01) | DRG 773 ==
LOC: YASAS 12:38 → Y3N 17:01
PROVIDERS: ADMIT Surgery; ATTEND Surgery
PROC: HZ2ZZZZ Detoxification Services for Substance Abuse Treatment (ICD-10-PCS; principal; 2018-12-07)
DX: F10.230 Alcohol dependence with withdrawal, uncomplicated (principal); F11.20 Opioid dependence, uncomplicated; F17.213 Nicotine dependence, cigarettes, with withdrawal; F19.24 Other psychoactive substance dependence with psychoactive substance-induced mood disorder; J45.20 Mild intermittent asthma, uncomplicated; K21.9 Gastro-esophageal reflux disease without esophagitis; R94.5 Abnormal results of liver function studies; D69.6 Thrombocytopenia, unspecified; E80.6 Other disorders of bilirubin metabolism; S01.01XA Laceration without foreign body of scalp, initial encounter; W01.198A Fall on same level from slipping, tripping and stumbling with subsequent striking against other object, initial encounter; Y93.89 Activity, other specified; Y92.238 Other place in hospital as the place of occurrence of the external cause; Z90.81 Acquired absence of spleen
CPT/HCPCS: 36415; 71045-TC-FY; 80053; 80076; 85027; 86593

== ENCOUNTER 2018-12-08 08:44 | Emergency (ER) | payer OTHER ==
[2018-12-08 09:01] VITALS: BP 154/90; PULSE 65; TEMP 98.1; BMI 25.6
--- NOTE | 2018-12-08 09:14 | PDOC ---
History of Present Illness - General Chief Complaint: Injury Stated Complaint: Altered Mental Status/HEAD INJURY Time Seen by Provider: 12/08/18 09:06 History Source: Patient Exam Limitations: Clinical Condition - History of Present Illness Initial Comments: 58 yo M w a pmh of GERD, depression, anxiety, schizophrenia, suicide attempt by hanging in 2006, asthma, bipolar and schizophrenia, Hep C and anemia presents to the ER BIBEMS after he fell down and hit the back of his head. He currently reports no complaints although he seems tired. The patient states he was sent over from [facility] to make sure he doesn't have a brain bleed. He denies recent fevers, chills, infections, chest pain, SOB, or difficulty breathing. 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, alcohol dependence with multiple withdrawal episodes, significant smoking history since age 18 currently smokes 1 PPD multiple attempts at detox Past History - Past Medical History Allergies/Adverse Reactions: Allergies Allergy/AdvReac Type Severity Reaction Status Date / Time No Known Allergies Allergy Verified 12/08/18 09:43 Home Medications: Ambulatory Orders Methadone [Dolophine -] 110 mg PO DAILY 12/11/17 Ranitidine HCl [Zantac] 150 mg PO BID #60 tablet 12/11/17 Sulfamethoxazole/Trimethoprim [Bactrim Ds Tablet] 1 each PO BID 12/07/18 Anemia: No Asthma: No Cancer: No Cardiac Disorders: No CVA: No COPD: No CHF: No Dementia: No Diabetes: No GI Disorders: Yes (GERD - Not on medication) Disorders: No HTN: No Hypercholesterolemia: No Kidney Stones: No Liver Disease: Yes (Hep C - Not treated) Psychiatric Problems: Yes (etoh and on methadone) Seizures: No Thyroid Disease: No - Surgical History Abdominal Surgery: Yes (splenectomy in 2001 (trauma)) Appendectomy: No Cardiac Surgery: No Cholecystectomy: No Lung Surgery: No Neurologic Surgery: No Orthopedic Surgery: No - Reproductive History Testicular Surgery: No - Suicide/Smoking/Psychosocial Hx Smoking History: Current every day smoker Have you smoked in the past 12 months: No Number of Cigarettes Smoked Daily: 8 Information on smoking cessation initiated: No 'Breaking Loose' booklet given: 11/08/18 Hx Alcohol Use: No Drug/Substance Use Hx: No Substance Use Type: Alcohol, Heroin Hx Substance Use Treatment: Yes ([facility]) Review of Systems - Review of Systems Able to Perform ROS?: Yes Comments:: CONSTITUTIONAL: Absent: fever, no chills, no fatigue EYES: Absent: visual changes ENT: Absent: ear pain, no sore throat CARDIOVASCULAR: Absent: chest pain, no palpitations RESPIRATORY: Absent: cough, no SOB GI: Absent: abdominal pain, no nausea, no vomiting, no constipation, no diarrhea GENITOURINARY: Absent: dysuria, no frequency, no hematuria MUSKULOSKELETAL: Absent: back pain, no arthralgia, no myalgia SKIN: Absent: rash NEURO: Absent: headache *Physical Exam - Vital Signs Last Vital Signs Temp Pulse Resp BP Pulse Ox 98.1 F 65 18 154/90 100 12/08/18 08:49 12/08/18 08:49 12/08/18 08:49 12/08/18 08:49 12/08/18 08:49 - Physical Exam Comments: GENERAL: Well-appearing, well-nourished. No apparent distress. HEENT: There is a small 1 cm cut on the left occipital aspect of the head with minimal active bleeding. Normocephalic. PERRL, EOM intact. CARDIOVASCULAR: Normal S1, S2. Regular rate and rhythm. PULMONARY: No evidence of respiratory distress. Lungs clear to auscultation bilaterally. No wheezing, rales or rhonchi. ABDOMEN: Soft, non-distended, non-tender. EXTREMITIES: Normal ROM in all four extremities. No gross deformities. SKIN: Warm, dry. No rash NEUROLOGICAL: No focal neurological deficits. Procedures - Laceration/Wound Repair Left Upper Occipital Wound Length: to 2.5 cm Wound Explored: clean Wound's Depth, Shape: superficial Irrigated w/ Saline: Yes Betadine Prep: No Wound Debrided: minimal Wound Repaired With: Tanya (2 tanya) Medical Decision Making - Medical Decision Making 58 yo M w a pmh of GERD, depression, anxiety, schizophrenia, suicide attempt by hanging in 2006, asthma, bipolar and schizophrenia, Hep C and anemia presents to the ER BIBEMS after he fell down and hit the back of his head. He currently reports no complaints although he seems tired. The patient states he was sent over from [facility] to make sure he doesn't have a brain bleed. VS: WNL DDx IBNLT: Laceration, brain bleed, intoxication Plan: Head CT, Staple lac, DC if head ct negative. 2 tanya placed on laceration. - Head CT negative. Will DC to [facility] with instructions to come back for staple removal in 5 days. *DC/Admit/Observation/Transfer Diagnosis at time of Disposition: Laceration of head - Discharge Dispostion Disposition: HOME Condition at time of disposition: Stable Decision to Admit order: No - Referrals Referrals: [facility] [place] [Provider Group] - Patient Instructions Printed Discharge Instructions: How to Prevent Falls, DI for Closed Head Injury Additional Instructions: You came into the ER after you fell and hit your head. We stapled your head injury closed. Please come back to the ER to have the tanya removed in 5 days. Please also come back if you start feeling nauseous, get a headache, or have any other new or worsening symptoms. Please make sure to schedule a follow up appointment with your pcp in the next 3 to 5 days to make sure you are getting better and being taken care of. Thank you for coming to the [facility] ER. We hope you feel better soon! Print Language: UZBEK - Post Discharge Activity
[2018-12-08] MEDS ORDERED: DIPHTH,PERTUSS(ACELL),TET 0.5 ML DISP.SYRIN IM ONE ×2 (09:54→10:01)
--- NOTE | 2018-12-08 11:08 | PDOC ---
Attending Attestation - Resident Resident Name: Dom Frazier - ED Attending Attestation I have performed the following: I have examined & evaluated the patient, The case was reviewed & discussed with the resident, I agree w/resident's findings & plan, Exceptions are as noted - HPI HPI: 12/08/18 11:06 The patient is a 58 year old male, with a significant PMH of GERD, depression, anxiety, schizophrenia, suicide attempt by hanging in 2006, asthma, bipolar, Hep C and anemia, who presents to the emergency department from [facility] detox s/p fall. The patient states he tripped and fell down hitting the back of his head. The patient endorses feeling tired but denies any other complaints. The patient denies chest pain, shortness of breath, headache and dizziness. Denies fever, chills, nausea, vomit, diarrhea and constipation. Denies dysuria, frequency, urgency and hematuria. Allergies: NKA Past surgical history: Splenectomy Social history: Former IV heroin user (currently on Methadone 110 mg), EtOH dependence with history of withdrawal episodes, current tobacco user. - Physicial Exam PE: 12/08/18 11:06 agree with resident exam No midline cervical, thoracic, lumbar ttp Head to toe exam with no deformities, ttp, evidence of trauma or injury other than laceration (described in Dr. Frazier's note) WWP, 2+ peripheral pulses x4 - Medical Decision Making 12/08/18 11:07 58yo M presents to the ED with head trauma after trip and fall at [facility] Vitals unremarkable CTH negative Lac repaired with tanya, tdap updated Pt stable for DC back to [facility]
== END 2018-12-08 11:16 | disposition home or self-care (01) ==
LOC: JER 08:44
PROC: 3E0234Z Introduction of Serum, Toxoid and Vaccine into Muscle, Percutaneous Approach (ICD-10-PCS; principal; 2018-12-08)
PROC: 0HQ0XZZ Repair Scalp Skin, External Approach (ICD-10-PCS; 2018-12-08)
DX: S01.01XA Laceration without foreign body of scalp, initial encounter (principal); W19.XXXA Unspecified fall, initial encounter; Y93.89 Activity, other specified; Y92.238 Other place in hospital as the place of occurrence of the external cause; Y99.8 Other external cause status; F11.20 Opioid dependence, uncomplicated; F17.210 Nicotine dependence, cigarettes, uncomplicated; K21.9 Gastro-esophageal reflux disease without esophagitis; Z86.59 Personal history of other mental and behavioral disorders; Z91.5 Personal history of self-harm
CPT/HCPCS: 12001-25; 70450-TC; 90471; 90715; 99282-25

== ENCOUNTER 2024-10-31 12:52 | Inpatient (IN) | payer OTHER ==
[2024-10-31 14:08] VITALS: BMI 22.3
[2024-10-31] MEDS ORDERED: POLYETHYLENE GLYCOL (HEALTHYLAX) 3350 17 GM PACKET PO PRN (14:29)
[2024-10-31] MEDS ORDERED: NICOTINE POLACRILEX 4 MG LOZENGE BC PRN (14:29)
[2024-10-31] MEDS ORDERED: LOPERAMIDE HCL 2 MG CAPSULE PO PRN (14:29)
[2024-10-31] MEDS ORDERED: NALOXONE (NARCAN) HCL 4 MG/0.1 ML SPRAY NS PRN (14:29)
[2024-10-31] MEDS ORDERED: BENZOCAINE/MENTHOL (CHLORASEPTIC ) LOZENGE MM PRN (14:29)
[2024-10-31] MEDS ORDERED: DICYCLOMINE HCL 10 MG CAPSULE PO PRN (14:29)
[2024-10-31] MEDS ORDERED: guaiFENesin 600 MG TABLET.ER (FP) PO PRN (14:29)
[2024-10-31] MEDS ORDERED: ACETAMINOPHEN 325 MG TABLET (FP) PO PRN (14:29)
[2024-10-31] MEDS ORDERED: BENZONATATE 200 MG CAPSULE PO PRN (14:29)
[2024-10-31] MEDS ORDERED: IBUPROFEN 400 MG TABLET (FP) PO PRN (14:29)
[2024-10-31] MEDS ORDERED: methaDONE HCL 10 MG TABLET PO PRN (17:11)
[2024-10-31] MEDS ORDERED: diazePAM 5 MG TABLET ONE (17:48)
[2024-10-31] MEDS ORDERED: methaDONE HCL 10 MG TABLET (FOR DETOX USE ONLY) ONE (17:49)
[2024-10-31] MEDS ORDERED: cloNIDine HCL 0.1 MG TABLET ONE (17:50)
[2024-10-31] MEDS: diazePAM 5 MG TABLET PO SCH (17:56)
[2024-10-31] MEDS: methaDONE HCL 10 MG TABLET PO ONE (17:56)
[2024-10-31] MEDS: cloNIDine HCL 0.1 MG TABLET PO SCH (17:59)
[2024-10-31] MEDS ORDERED: NALTREXONE HCL 50 MG TABLET PO ONE (18:00)
[2024-10-31] MEDS: ACAMPROSATE CALCIUM 333 MG TABLET.DR PO SCH (22:36)
[2024-10-31] MEDS: THIAMINE 100 MG TABLET PO SCH (22:36)
[2024-10-31] MEDS: MELATONIN 5 MG TABLETS PO SCH (22:37)
[2024-10-31] MEDS: MAG HYDROX/AL HYDROX/SIMETH 30 ML UNIT-DOSE CUP PO PRN (22:38)
[2024-11-01] MEDS: MAGNESIUM HYDROX 2400MG/30ML ORAL SUSPENSION 30 ML CUP PO PRN (06:26)
[2024-11-01] MEDS ORDERED: methaDONE 40 MG, methaDONE 10 MG PO ONE (10:00)
[2024-11-01] MEDS ORDERED: NALTREXONE HCL 50 MG TABLET PO SCH (10:00)
[2024-11-01] MEDS ORDERED: methaDONE HCL 10 MG TABLET PO ONE (10:14)
[2024-11-01] MEDS: PRENATAL VITAMINS W/ FOLIC ACID TABLET (FP) PO SCH (10:37)
[2024-11-01] MEDS: NICOTINE 14 MG/24 HOURS TOPICAL PATCH TD SCH (10:39)
[2024-11-01 11:58] LABS: SODIUM 137 mmol/L (136-145)
[2024-11-01 12:00] LABS: ALBUMIN 2.4 g/dl (3.4-5.0); BLOOD UREA NITROGEN 10.1 mg/dL (7-18); CALCIUM 8.3 mg/dL (8.5-10.1); CO2 32 mmol/L (21-32); GLUCOSE,RANDOM 103 mg/dL (74-106)
[2024-11-01 12:03] LABS: CREATININE 0.5 mg/dL (0.55-1.3); SGOT/AST 68 U/L (15-37); SGPT/ALT 33 U/L (13-61)
[2024-11-01 12:05] LABS: BILIRUBIN,TOTAL 0.8 mg/dL (0.2-1); TOT PROT 7.3 g/dl (6.4-8.2)
[2024-11-01 12:06] LABS: ALK PHOS 182 U/L (45-117)
[2024-11-01 12:37] LABS: HEMATOCRIT 36.9 % (35.4-49); HEMOGLOBIN 12.5 GM/dL (11.7-16.9); MCH 33.9 pg (25.7-33.7); MCHC 33.8 g/dl (32.0-35.9); MEAN CELL VOLUME 100.4 fl (80-96); MEAN PLT VOLUME 10.1 fl (7.5-11.1); PLATELET COUNT 128 10^3/uL (134-434); RBC 3.67 M/mm3 (4.00-5.60); RDW 15.5 % (11.9-15.9); WHITE BLOOD COUNT 4.6 K/mm3 (4.0-10.0)
[2024-11-01] MEDS: diazePAM 5 MG TABLET PO PRN (13:40)
[2024-11-01 14:22] LABS: ANION GAP 6 mmol/L (4-13); CHLORIDE 100 mmol/L (98-107)
[2024-11-01] MEDS: IBUPROFEN 600 MG TABLET (FP) PO PRN (22:35)
[2024-11-02] MEDS ORDERED: cloNIDine HCL 0.1 MG TABLET PO PRN
[2024-11-02] MEDS: diazePAM 5 MG TABLET PO SCH (05:52)
[2024-11-02] MEDS ORDERED: methaDONE HCL 40 MG DISPERSABLE TABLET PO SCH (06:00)
[2024-11-02] MEDS ORDERED: methaDONE 40 MG, methaDONE 20 MG PO ONE (10:00)
[2024-11-02] MEDS: hydrOXYzine PAMOATE 25 MG CAPSULE (FP) PO PRN (10:18)
[2024-11-02] MEDS: METHOCARBAMOL 500 MG TABLET PO PRN (10:18)
[2024-11-02] MEDS: ONDANSETRON *ODT* 4 MG TABLET SL PRN (10:19)
[2024-11-02] MEDS: LACTULOSE 20 GM/30 ML UDC (FOR ORAL USE ONLY) PO SCH (13:16)
[2024-11-02] MEDS: SUVOREXANT 10 MG TABLET PO PRN (22:26)
[2024-11-03] MEDS: diazePAM 5 MG TABLET PO SCH (05:52)
[2024-11-03] MEDS ORDERED: methaDONE 40 MG, methaDONE 30 MG PO ONE (10:00)
[2024-11-04] MEDS: BISMUTH SUBSALICYLATE 262 MG/15 ML BTL PO PRN (00:53)
[2024-11-04] MEDS: diazePAM 5 MG TABLET PO ONE (05:41)
[2024-11-04 09:10] VITALS: BP 149/92; PULSE 67; RESP 18; TEMP 97.3
[2024-11-04] MEDS ORDERED: methaDONE HCL 40 MG DISPERSABLE TABLET PO ONE (10:00)
[2024-11-05] MEDS ORDERED: methaDONE 80 MG, methaDONE 10 MG PO ONE (10:00)
== END 2024-11-04 10:15 | disposition home or self-care (01) | DRG 773 ==
LOC: YASAS 12:52 → Y6N 16:51
PROVIDERS: ADMIT Allergy & Immunology; ATTEND Allergy & Immunology
PROC: HZ2ZZZZ Detoxification Services for Substance Abuse Treatment (ICD-10-PCS; principal; 2024-10-31)
DX: F10.230 Alcohol dependence with withdrawal, uncomplicated (principal); F13.20 Sedative, hypnotic or anxiolytic dependence, uncomplicated; F11.20 Opioid dependence, uncomplicated; F17.210 Nicotine dependence, cigarettes, uncomplicated; F19.282 Other psychoactive substance dependence with psychoactive substance-induced sleep disorder; K74.60 Unspecified cirrhosis of liver; K21.9 Gastro-esophageal reflux disease without esophagitis; B18.2 Chronic viral hepatitis C; R74.8 Abnormal levels of other serum enzymes; R79.89 Other specified abnormal findings of blood chemistry; Z62.810 Personal history of physical and sexual abuse in childhood; Z63.8 Other specified problems related to primary support group
CPT/HCPCS: 36415; 80053; 80305; 80307; 82140; 82962; 85027; 86780; 93005; 93010; Q0162

== ENCOUNTER 2024-12-12 13:06 | Inpatient (IN) | payer OTHER ==
[2024-12-12 14:27] VITALS: BMI 26.5
[2024-12-12] MEDS ORDERED: BISMUTH SUBSALICYLATE 524 MG/30 ML PO PRN (14:34)
[2024-12-12] MEDS ORDERED: LOPERAMIDE HCL 2 MG CAPSULE PO PRN (14:34)
[2024-12-12] MEDS ORDERED: ACETAMINOPHEN 325 MG TABLET (FP) PO PRN (14:34)
[2024-12-12] MEDS ORDERED: BENZOCAINE/MENTHOL (CHLORASEPTIC ) LOZENGE MM PRN (14:34)
[2024-12-12] MEDS ORDERED: IBUPROFEN 400 MG TABLET (FP) PO PRN (14:34)
[2024-12-12] MEDS ORDERED: guaiFENesin 600 MG TABLET.ER (FP) PO PRN (14:34)
[2024-12-12] MEDS ORDERED: MAG HYDROX/AL HYDROX/SIMETH 30 ML UNIT-DOSE CUP PO PRN (14:34)
[2024-12-12] MEDS ORDERED: ONDANSETRON *ODT* 4 MG TABLET SL PRN (14:34)
[2024-12-12] MEDS ORDERED: hydrOXYzine PAMOATE 25 MG CAPSULE (FP) PO PRN (14:34)
[2024-12-12] MEDS ORDERED: NALOXONE (NARCAN) HCL 4 MG/0.1 ML SPRAY NS PRN (14:34)
[2024-12-12] MEDS ORDERED: DICYCLOMINE HCL 10 MG CAPSULE PO PRN (14:34)
[2024-12-12] MEDS ORDERED: BENZONATATE 200 MG CAPSULE PO PRN (14:34)
[2024-12-12] MEDS ORDERED: diazePAM 5 MG TABLET ONE (17:03)
[2024-12-12] MEDS: diazePAM 5 MG TABLET PO SCH (17:07)
[2024-12-12] MEDS: PRENATAL VITAMINS W/ FOLIC ACID TABLET (FP) PO SCH (19:12)
[2024-12-12] MEDS: NICOTINE 14 MG/24 HOURS TOPICAL PATCH TD SCH (19:13)
[2024-12-12] MEDS: FAMOTIDINE 20 MG TABLET PO SCH (22:38)
[2024-12-12] MEDS: MELATONIN 5 MG TABLETS PO SCH (22:38)
[2024-12-12] MEDS: THIAMINE 100 MG TABLET PO SCH (22:38)
[2024-12-12] MEDS: METHOCARBAMOL 500 MG TABLET PO PRN (22:38)
[2024-12-13] MEDS ORDERED: methaDONE HCL 10 MG TABLET PO ONE (10:21)
[2024-12-13] MEDS: methaDONE HCL 10 MG TABLET PO ONE (11:04)
[2024-12-13] MEDS ORDERED: methaDONE HCL 10 MG TABLET PO PRN (12:12)
[2024-12-13] MEDS: diazePAM 5 MG TABLET PO PRN (14:34)
[2024-12-13] MEDS: MAGNESIUM HYDROX 2400MG/30ML ORAL SUSPENSION 30 ML CUP PO PRN (14:34)
[2024-12-13 17:29] LABS: HEMATOCRIT 36.6 % (40.1-51.0); HEMOGLOBIN 12.5 g/dL (13.7-17.5); MCHC 34.2 g/dl (32.3-36.5); MEAN CELL VOLUME 97.6 fl (79.0-92.2); MEAN PLT VOLUME 12.1 fl (9.4-12.4); PLATELET COUNT 161 x10^3/uL (163-337); RDW 15.9 % (12.2-16.4)
[2024-12-13 17:36] LABS: CHLORIDE 104 mmol/L (98-107); SODIUM 138 mmol/L (136-145)
[2024-12-13] MEDS: IBUPROFEN 600 MG TABLET (FP) PO PRN (17:44)
[2024-12-13 17:50] LABS: ALBUMIN 2.3 g/dl (3.4-5.0); CALCIUM 8.5 mg/dL (8.5-10.1)
[2024-12-13 17:51] LABS: ANION GAP 6 mmol/L (4-13); CO2 27 mmol/L (21-32); GLUCOSE,RANDOM 100 mg/dL (74-106)
[2024-12-13 17:54] LABS: CREATININE 0.5 mg/dL (0.55-1.3); SGOT/AST 68 U/L (15-37); SGPT/ALT 34 U/L (13-61)
[2024-12-13 17:55] LABS: BILIRUBIN,TOTAL 0.8 mg/dL (0.2-1); TOT PROT 6.8 g/dl (6.4-8.2)
[2024-12-13 17:57] LABS: ALK PHOS 168 U/L (45-117)
[2024-12-14] MEDS: diazePAM 5 MG TABLET PO SCH (05:44)
[2024-12-14] MEDS ORDERED: methaDONE HCL 10 MG TABLET PO SCH (06:00)
[2024-12-14] MEDS ORDERED: methaDONE 40 MG, methaDONE 10 MG PO ONE (10:00)
[2024-12-14] MEDS: VITAMINS A AND D TOPICAL OINTMENT TP SCH (11:11)
[2024-12-14] MEDS: POLYETHYLENE GLYCOL (HEALTHYLAX) 3350 17 GM PACKET PO PRN (17:09)
[2024-12-14] MEDS: SUVOREXANT 10 MG TABLET PO PRN (22:37)
[2024-12-15] MEDS ORDERED: cloNIDine HCL 0.1 MG TABLET PO PRN
[2024-12-15] MEDS: diazePAM 5 MG TABLET PO SCH (05:58)
[2024-12-15] MEDS: BISACODYL 5 MG TABLET.DR (FP) PO PRN (09:40)
[2024-12-15] MEDS ORDERED: methaDONE 40 MG, methaDONE 20 MG PO ONE (10:00)
[2024-12-16] MEDS: diazePAM 5 MG TABLET PO ONE (06:23)
[2024-12-16 09:46] VITALS: BP 111/68; PULSE 68; RESP 18; TEMP 97.5
[2024-12-16] MEDS ORDERED: methaDONE 40 MG, methaDONE 30 MG PO ONE (10:00)
== END 2024-12-16 09:48 | disposition home or self-care (01) | DRG 773 ==
LOC: YASAS 13:06 → Y6N 16:35
PROVIDERS: ADMIT Allergy & Immunology; ATTEND Allergy & Immunology
PROC: HZ2ZZZZ Detoxification Services for Substance Abuse Treatment (ICD-10-PCS; principal; 2024-12-12)
DX: F10.230 Alcohol dependence with withdrawal, uncomplicated (principal); F11.20 Opioid dependence, uncomplicated; F17.213 Nicotine dependence, cigarettes, with withdrawal; F19.282 Other psychoactive substance dependence with psychoactive substance-induced sleep disorder; F19.24 Other psychoactive substance dependence with psychoactive substance-induced mood disorder; F31.9 Bipolar disorder, unspecified; F20.9 Schizophrenia, unspecified; K70.30 Alcoholic cirrhosis of liver without ascites; K21.9 Gastro-esophageal reflux disease without esophagitis; B18.2 Chronic viral hepatitis C; R29.6 Repeated falls; Z99.89 Dependence on other enabling machines and devices
CPT/HCPCS: 36415; 80053; 80305; 80307; 82962; 85027; 86780; 93005; 93010